=== PATIENT | female | born 1940 | race Caucasian/White ===

== ENCOUNTER 2018-05-25 04:06 | Inpatient (IN) ==
[2018-05-25] MEDS ORDERED: DUONEB (A & A) INH ONE (04:38)
[2018-05-25] MEDS ORDERED: SOLU-MEDROL IV ONE (04:38)
[2018-05-25 05:43] LABS: BASO# 0.02 X1000 (0.0-0.2); BASO% 0.1 % (0.0-0.8); EOS# 0.15 X1000 (0.0-0.7); EOS% 1.1 % (0.0-10.0); HEMATOCRIT 42.9 % (37.0-47.0); HEMOGLOBIN 12.3 g/dL (12.0-16.0); IMM GRAN# 0.09 X1000 (0.0-0.04); IMM GRAN% 0.6 % (0.0-0.5); LYMPH# 2.79 X1000 (1.2-3.4); LYMPH% 19.8 % (20.5-51.1); MCH 24.9 PG (27-31); MCHC 28.7 g/dL (33-37); MONO# 1.15 X1000 (0.11-0.59); MONO% 8.2 % (1.7-9.3); MPV 9.6 FL (7.4-10.4); NEUT# 9.89 X1000 (1.4-6.5); NEUT% 70.2 % (42.2-75.2); PLT 434 X1000 (130-400); RBC 4.93 XMIL (4.2-5.4); RDW 14.5 % (11.5-14.5); WBC 14.09 X1000 (4.8-10.8)
[2018-05-25 06:00] LABS: ALB/GLOB RATIO 1.6; ALBUMIN 4.2 g/dL (3.5-5.0); CALCIUM 8.8 mg/dL (8.8-10.2); POTASSIUM 5.2 mmol/L (3.5-5.1); TOTAL BILIRUBIN 0.15 mg/dL (0.20-1.00); TOTAL PROTEIN 6.9 g/dL (6.3-8.3)
[2018-05-25] MEDS ORDERED: MORPHINE IV ONE (06:13)
--- NOTE | 2018-05-25 06:31 | Diag Imaging Result Doc PS360 ---
CHEST-1 VIEW - 05/25/2018 INDICATION: sob COMPARISON: 05/10/2018 FINDINGS: Stable hyperexpanded lungs compatible with COPD. No focal infiltrates, pneumothorax, or pleural effusion. Heart size is normal. IMPRESSION: COPD. Electronically signed by Michael Jean 05/25/2018 6:29 AM
--- NOTE | 2018-05-25 06:51 | PROVIDER DOCUMENTATION ---
HPI-General Adult - General Chief Complaint: Shortness of Breath Stated Complaint: SOB Time Seen by Provider: 05/25/18 04:33 Source: patient Allergies/Adverse Reactions: Patient Allergies Allergy/AdvReac Type Severity Reaction Status Date / Time codeine [Codeine] Allergy Mild NAUSEA/VOMI Verified 04/17/17 14:36 TING Home Medications: Home Medication List Medication Instructions Recorded Confirmed Last Taken Type Arformoterol Neb [Brovana Neb] 15 microgm INH RTQ12H neb 12/23/16 04/22/17 04/16/17 Rx Levothyroxine [Synthroid] 100 microgm PO DAILY@0700 tablet 12/23/16 05/25/18 05/24/18 Rx Paroxetine [Paxil] 30 mg PO DAILY tablet 12/23/16 05/25/18 05/24/18 Rx Sitagliptin [Januvia] 100 mg PO DAILY tablet 12/23/16 05/25/18 05/24/18 Rx Baclofen 5 mg PO Q8H PRN PRN #10 tab 04/17/17 04/22/17 Unknown Rx Clonazepam [Klonopin] 0.5 mg PO TID PRN PRN 04/17/17 05/25/18 05/24/18 History Metformin [Glucophage] 500 mg PO BID 04/17/17 04/22/17 04/16/17 History Tramadol HCl [Ultram] 50 mg PO Q8H PRN PRN #14 tab 04/17/17 04/22/17 Unknown Rx Levofloxacin [Levaquin] 500 mg PO DAILY 04/22/17 04/22/17 Unknown History Prednisone 5 mg PO DAILY 04/22/17 05/25/18 05/24/18 History Albuterol 2.5MG/Ipratrop 0.5MG 3 ml INH RTQ6H neb 04/27/17 05/25/18 05/24/18 Rx [Duoneb (A & A)] Arformoterol Neb [Brovana Neb] 15 microgm INH RTQ12H neb 04/27/17 Unknown Rx Baclofen [Lioresal] 5 mg PO Q8H PRN PRN tablet 04/27/17 Unknown Rx Clonazepam [Klonopin] 0.5 mg PO TID PRN PRN tablet 04/27/17 Unknown Rx Eucalyptus Oil/Menthol Lozenge 1 each MT PRN PRN bag 04/27/17 Unknown Rx [Mcmullen's Cough Lozenge] Levothyroxine [Synthroid] 100 microgm PO DAILY@0700 tablet 04/27/17 Unknown Rx Metformin [Glucophage] 500 mg PO BID tablet 04/27/17 05/25/18 05/24/18 Rx Paroxetine [Paxil] 30 mg PO DAILY tablet 04/27/17 Unknown Rx Phenol 1.4% [place] [Chloraseptic 1 ml MT PRN PRN bottle 04/27/17 Unknown Rx [place]] Saline Nasal [place] [[place] Nasal 1 ml LEI PRN PRN bottle 04/27/17 Unknown Rx [place]] Sitagliptin [Januvia] 100 mg PO DAILY tablet 04/27/17 Unknown Rx Tramadol [Ultram] 50 mg PO Q8H PRN PRN tablet 04/27/17 05/25/18 05/24/18 Rx Tramadol [Ultram] 50 mg PO Q8HR #20 tab 05/10/18 Unknown Rx - History of Present Illness -Gen Adult Nature of Presenting Problems: Pt presents with COPD exacerbation, pt reports sob x several days, getting progressively worse, associated with productive cough, pt is on home O2 and has increased her O2, pt denies f/c, diane, cp, ap, n/v/d. Pt is lying in bed in no acute distress. Location of Pain/Injury: reports: none Pain Radiation: reports: no radiation Quality of Pain: reports: none Severity: reports: moderate Onset/Duration: reports: 4 days ago Timing: reports: still present Context/Activities at Onset: reports: none Modifying Factors: improves with: nothing Associated Symptoms: reports: shortness of breath Similar Symptoms Previously?: Yes Recently seen or treated by another doctor?: No Review of Systems - Adult - REVIEW OF SYSTEMS - ADULT Constitutional: reports: no symptoms reported Eyes: reports: no symptoms reported Ears, Nose, Mouth & Throat: reports: no symptoms reported Cardiovascular: reports: no symptoms reported Respiratory: reports: see HPI Gastrointestinal: reports: no symptoms reported Genitourinary: reports: no symptoms reported Musculoskeletal: reports: no symptoms reported Integumentary: reports: no symptoms reported Neurological: reports: no symptoms reported Psychiatric: reports: no symptoms reported Endocrine: reports: no symptoms reported Hematologic/Lymphatic: reports: no symptoms reported Allergic/Immunologic: reports: no symptoms reported All Other Systems: Reviewed and Negative Past History - Adult - PAST MEDICAL HISTORY-ADULT Review of Records: reports: Old Records Reviewed, Nursing Assessment Review, Medications Reviewed, Social history reviewed & non-contributory. Cardiovascular: reports: HTN Respiratory: reports: asthma, COPD Endocrine/Immune: reports: Diabetes - PRIOR SURGERIES/PROCEDURES Surgical/Procedure History: reports: cholecystectomy, hysterectomy - PRIOR HOSPITALIZATIONS Prior Hospitalizations: reports: for similar symptoms - IMMUNIZATION STATUS Childhood Immunizations: See Nurse Assessment Flu Vaccine: See Nurse Assessment - FAMILY HISTORY Family History: cancer, HTN Physical Exam-General - PHYSICAL EXAM-ADULT Initial Vital Signs Reviewed: Yes - CONSTITUTIONAL General Appearance: appears well - EYES Eyes: PERRL/EOMI - HEAD, EARS, NOSE, MOUTH & THROAT HENMT: normocephalic/atraumatic - NECK Neck: full range of motion, normal inspection - RESPIRATORY Respiratory: no respiratory distress, no accessory muscle use, wheezing - CARDIOVASCULAR Cardiovascular: regular rate, rhythm - GASTROINTESTINAL (ABDOMEN) Abdominal Exam: normal bowel sounds - LYMPHATIC Lymphatic: no adenopathy - MUSCULOSKELETAL Back Exam: normal inspection Extremity: normal range of motion - SKIN Integumentary: normal color - NEUROLOGIC Neurologic: shop manager II-XII nml as tested - PSYCHIATRIC Psych/Mental Status: normal mood/affect Progress - PLAN OF CARE/RESULTS Progress/Plan/Lab Results: Vital Signs - 8 hr 05/25/18 04:24 05/25/18 04:40 Temperature 97.9 F Pulse Rate 129 H 85 Respiratory Rate 22 16 Blood Pressure 162/96 O2 Sat by Pulse Oximetry 100 97 Laboratory Results - last 24 hr 05/25/18 05/25/18 05/25/18 05:10 05:12 05:12 WBC 14.09 H RBC 4.93 Hgb 12.3 Hct 42.9 MCV 87.0 MCH 24.9 L MCHC 28.7 L RDW Std Deviation 14.5 Plt Count 434 H MPV 9.6 Immature Gran % (Auto) 0.6 H Neut % (Auto) 70.2 Lymph % (Auto) 19.8 L [place] % (Auto) 8.2 Eos % (Auto) 1.1 Baso % (Auto) 0.1 Immature Gran # (Auto) 0.09 H Neut # (Auto) 9.89 H Lymph # (Auto) 2.79 [place] # (Auto) 1.15 H Eos # (Auto) 0.15 Baso # (Auto) 0.02 Sodium 140 Potassium 5.2 H Chloride 93 L Carbon Dioxide 36 H Anion Gap 11 BUN 16 Creatinine 1.0 H Estimated GFR/1.73 m2 54 BUN/Creatinine Ratio 16 Glucose 186 H Calculated Osmolality 285 Calcium 8.8 Total Bilirubin 0.15 L AST 15 ALT 11 Alkaline Phosphatase 271 H Troponin T Vww-[id number]-Bcdgnaitqyv Pept 85 Total Protein 6.9 Albumin 4.2 Globulin 2.7 Albumin/Globulin Ratio 1.6 05/25/18 05:12 WBC RBC Hgb Hct MCV MCH MCHC RDW Std Deviation Plt Count MPV Immature Gran % (Auto) Neut % (Auto) Lymph % (Auto) [place] % (Auto) Eos % (Auto) Baso % (Auto) Immature Gran # (Auto) Neut # (Auto) Lymph # (Auto) [place] # (Auto) Eos # (Auto) Baso # (Auto) Sodium Potassium Chloride Carbon Dioxide Anion Gap BUN Creatinine Estimated GFR/1.73 m2 BUN/Creatinine Ratio Glucose Calculated Osmolality Calcium Total Bilirubin AST ALT Alkaline Phosphatase Troponin T < 0.010 Lgi-X-Qacrkyawnpt Pept Total Protein Albumin Globulin Albumin/Globulin Ratio Orders Category Date Time Status cxr [CHEST-1 VIEW] [RAD] Stat Exams 05/25/18 04:37 Completed CBC WITH ELECTRONIC DIFF [HEME] Stat Lab 05/25/18 05:10 Completed COMPREHENSIVE METABOLIC PANEL [CHEM] Stat Lab 05/25/18 05:12 Completed PRO B-NATRIURETIC PEPTIDE Stat Lab 05/25/18 05:12 Completed TROPONIN T Stat Lab 05/25/18 05:12 Completed Albuterol 2.5MG/Ipratrop 0.5MG [Duoneb (A & A)] Med 05/25/18 04:38 Discontinued 3 ml INH NOW ONE Methylprednisolone Sod Succ [Solu-Medrol] Med 05/25/18 04:38 Discontinued 125 mg IV NOW ONE Morphine Med 05/25/18 06:13 Discontinued 4 mg IV NOW ONE Aerosol Treatments Routine Oth 05/25/18 04:38 Completed Aerosol Treatments Stat Oth 05/25/18 04:38 Completed EKG [EKG] Stat Ther 05/25/18 04:15 Ordered Result Diagrams: 05/25/18 05:10 05/25/18 05:12 - REASSESSMENT Reassessment #1 Time Reassessed: 07:28 Status: improving (Seen and examined by me. Case discussed with Dr. Duran at shift change. She is still tachycardic, lung sounds tight. States is afraid to go home. Will culture and lactate, give IV levaquine and call Dr. Guzman for pos sible admission. Patient meets criteria for sepsis based on leukocytosis and tachycardia.) - CONSULTS/PCP/HOSPITALIST Notification #1 *Consult/PCP/Hospitalist*: Megan Time Discussed: 08:00 (Agrees to admit, wants Levaquin) Consult Disposition: Admit - CHANGE OF SHIFT REPORT (ED Provider) 1 Report Given and Care Transferred to:: Dr. Damian Time of Transfer: 07:00 Items Pending: Other (Reassess sob and tachycardia) Departure - Departure Date of Disposition Decision: 05/25/18 Time of Disposition Decision: 08:00 DIAGNOSIS: COPD exacerbation Sepsis Qualifiers: Sepsis type: sepsis due to unspecified organism Qualified Code(s): A41.9 - Sepsis, unspecified organism Disposition: ADMITTED INPATIENT 09 Certified Medical Emergency: Emergent Condition: Fair Referrals and Follow-Ups: Josh Guzman MD [Primary Care Provider] - - Critical Care Note This patient required my direct & personal management of CC.: Yes Total Time (mins): 35 Critical Care Statement: This patient required my direct personal management to treat or rule out processes, the absence of which, could potentiallly result in sudden, clinically significant life or limb threatening deterioration. Attestation - Physician/ KAYLIE Attestation Patient care was provided by Advanced Practice Provider:: No The physician spent face to face time with patient:: Yes Advanced Practice Provider documentation review:: Supervising physician onsite and consulted in the evaluation and care of this patient. The physician did have a face to face encounter with the patient.
[2018-05-25] MEDS ORDERED: NS 500 ML IV ONE (06:52)
[2018-05-25] MEDS ORDERED: KEFLEX PO ONE (06:52)
[2018-05-25] MEDS ORDERED: LEVAQUIN 750 MG/D5W 750 MG/150 ML IVPB IV ONE (06:58)
--- NOTE | 2018-05-25 07:28 | EKG Report ---
Test Performed on : 05/25/2018 04:19:29 AM Test Reason : SOB Blood Pressure : / mmHG Vent. Rate : 128 BPM Atrial Rate : 128 BPM P-R Int : 132 ms QRS Dur : 074 ms QT Int : 302 ms P-R-T Axes : 082 073 075 degrees QTc Int : 440 ms Sinus tachycardia. Right atrial enlargement Borderline ECG When compared with ECG of 10-MAY-2018 10:11, (Unconfirmed) premature atrial complexes. are no longer present Unconfirmed Result
[2018-05-25] MEDS ORDERED: NS 1,000 ML IV ONE ×2 (07:30→08:02)
[2018-05-25] MEDS ORDERED: D50W SYRINGE IV ONE (08:05)
[2018-05-25 08:34] LABS: ALLEN TEST YES; BE 9.5 mmoll (-3.0-3.0); BLOOD TYPE ARTERIAL; HCO3-(ACT) 32.4 mmoll (20.0-26.0); METHB 0.1 % (0.0-1.5); O2(CT) 15.5 mL/dL (15.0-23.0); O2HB 97.5 % (95.0-99.0); PO2(98.6) 96 mmHg (60-100); SAMPLE BLOOD; SAO2 99.7 % (95.0-100.0); THB 11.2 g/dL (11.5-17.4)
[2018-05-25 08:35] LABS: MODALITY CANNULA
[2018-05-25 08:38] LABS: PCO2(98.6) 78 mmHg (35-45)
[2018-05-25] MEDS ORDERED: KLONOPIN PO PRN ×2 (09:13)
[2018-05-25] MEDS ORDERED: HALL'S COUGH LOZENGE MT PRN (09:13)
[2018-05-25] MEDS ORDERED: CHLORASEPTIC SPRAY MT PRN (09:13)
[2018-05-25] MEDS ORDERED: LIORESAL PO PRN ×2 (09:13)
[2018-05-25] MEDS ORDERED: ULTRAM PO PRN ×2 (09:13)
[2018-05-25] MEDS ORDERED: AYR NASAL SPRAY NAS PRN (09:13)
[2018-05-25] MEDS ORDERED: LEVAQUIN 750 MG/D5W 750 MG/150 ML IVPB IV SCH (09:15)
--- NOTE | 2018-05-25 09:33 | PROGRESS NOTE ---
DATE: 05/25/2018 SUBJECTIVE: Ms. Rojas is doing somewhat better. She was given respiratory therapy as well as IV steroids, IV Levaquin in the emergency room. PLAN: She is being admitted with acute bronchitis and acute respiratory failure. cc: Josh Guzman MD
--- NOTE | 2018-05-25 09:33 | HISTORY AND PHYSICAL ---
HISTORY OF PRESENT ILLNESS: Ms. Rojas is a 78-year-old, white female with a known case of COPD, maturity-onset diabetes, severe anxiety, chronic urticaria. Came to the emergency room because of severe shortness of breath. She has been having persistent cough and expectoration. She has been sick for the last 3 weeks. She once came to the emergency room. However, she was sent home. She gets recurrent infections with bronchitis and pneumonia. PAST SURGICAL HISTORY: Reveals history of hysterectomy as well as cholecystectomy. PAST MEDICAL HISTORY: She has a history of mild hypertension. REVIEW OF SYSTEMS: Other than increasing shortness of breath and cough with expectoration, it is noncontributory. MEDICATIONS: Include intermittent prednisone therapy, inhalers. We have not got her medication list yet. She is on oral antidiabetic agents. PHYSICAL EXAMINATION: VITAL SIGNS: Reveal temperature normal, pulse 122 per minute, respiratory rate 21 per minute, blood pressure 162/96. HEENT: Head: Normocephalic. Pupils: PERRLA. Fundus examination not done. Neck: Supple. JVP normal. ENT examination reveals some pharyngeal congestion. There is no evidence of lymphadenopathy, thyroid enlargement, cyanosis, or clubbing. There is minimal anemia with pallor and bilateral pedal edema. Pedal pulses well felt. BREASTS: Examination not done. CHEST: Normal inspection. LUNGS: Reveal bilateral expiratory wheezing with some basal rales. PMI in the normal position. HEART: Heart sounds normal. No murmur, gallop, or rub noted. ABDOMEN: Nondistended. Hernial orifices normal. No guarding, rigidity, free fluid, masses, or organomegaly. Bowel sounds normal. RECTAL: Examination deferred. MERCHANDISE PLANNING MANAGER: Higher functions normal. Cranial nerves normal. Motor and system examination unremarkable. Deep tendon reflexes normal. Plantars downgoing. Skull and spine examination normal for age. No cerebellar signs or signs of meningeal irritation. Locomotor examination unremarkable. SKIN: Examination unremarkable. LAB DATA: Reveals white count of 14.09, hemoglobin 12.3. Blood gases reveal pCO2 of 78, pH 7.3, PO2 of 96. Electrolytes are stable. Potassium 5.2. PLAN: We will continue the current plan of management. IMPRESSION: 1. Acute bronchitis. 2. Acute respiratory failure. 3. Chronic obstructive pulmonary disease. 4. Maturity onset diabetes. 5. Hypertension. 6. Severe anxiety. 7. Chronic urticaria. cc: Josh Guzman MD
[2018-05-25] MEDS ORDERED: DUONEB (A & A) INH SCH (10:00)
[2018-05-25] MEDS: DUONEB (A & A) INH SCH ×4 (11:29→22:55)
[2018-05-25] MEDS: HUMALOG SUBQ SCH ×3 (12:27→22:27)
[2018-05-25] MEDS ORDERED: ULTRAM PO SCH (13:00)
[2018-05-25 14:28] LABS: URINE SOURCE CLEAN CATCH
[2018-05-25 14:32] LABS: BILIRUBIN URINE NEGATIVE (NEGATIVE); BLOOD URINE NEGATIVE (NEGATIVE); COLOR YELLOW; GLUCOSE URINE >1000 mg/dL (NEGATIVE); KETONE URINE NEGATIVE (NEGATIVE); LEUKOCYTES URINE NEGATIVE (NEGATIVE); NITRITE URINE NEGATIVE (NEGATIVE); PH URINE 6.5; PROTEIN URINE NEGATIVE (NEGATIVE); SP GRAVITY URINE 1.008; TURBIDITY URINE CLEAR (CLEAR); UROBILINOGEN URINE NORMAL (NORMAL)
[2018-05-25 14:34] LABS: UR EPITHELIAL CELLS <10 /HPF (<10); URINE BACTERIA NEGATIVE /HPF; URINE RBC <10 /HPF (<10); URINE WBC <10 /HPF (<10)
[2018-05-25] MEDS: KLONOPIN PO PRN ×2 (14:43→19:44)
[2018-05-25] MEDS: SOLU-MEDROL IV SCH ×2 (14:43→19:42)
[2018-05-25] MEDS: GLUCOPHAGE PO SCH (16:45)
[2018-05-25] MEDS: BROVANA NEB INH SCH (19:21)
[2018-05-25] MEDS ORDERED: BROVANA NEB INH SCH ×2 (19:30)
[2018-05-25] MEDS: ZANAFLEX PO SCH ×2 (19:43→23:24)
[2018-05-25] MEDS ORDERED: GLUCOPHAGE PO SCH ×2 (21:00)
[2018-05-25] MEDS: TYLENOL PO PRN (23:35)
[2018-05-26] MEDS: SOLU-MEDROL IV SCH ×4 (02:22→20:26)
[2018-05-26] MEDS: DUONEB (A & A) INH SCH ×6 (03:43→23:10)
[2018-05-26] MEDS: KLONOPIN PO PRN ×3 (04:07→23:40)
[2018-05-26] MEDS: SYNTHROID PO SCH (06:50)
[2018-05-26] MEDS: HUMALOG SUBQ SCH ×4 (06:50→21:58)
[2018-05-26] MEDS ORDERED: SYNTHROID PO SCH ×2 (07:00)
[2018-05-26] MEDS ORDERED: BROVANA NEB ONE ×2 (07:10)
[2018-05-26] MEDS: BROVANA NEB INH SCH ×2 (07:56→19:30)
[2018-05-26] MEDS: JANUVIA PO SCH (08:05)
[2018-05-26] MEDS: GLUCOPHAGE PO SCH ×2 (08:07→17:30)
[2018-05-26] MEDS: ZANAFLEX PO SCH ×2 (08:07→20:26)
[2018-05-26] MEDS: PAXIL PO SCH (08:32)
[2018-05-26] MEDS ORDERED: PAXIL PO SCH ×2 (09:00)
[2018-05-26] MEDS ORDERED: JANUVIA PO SCH ×2 (09:00)
--- NOTE | 2018-05-26 09:14 | PROGRESS NOTE ---
DATE: 05/26/2018 Ms. Rojas is feeling somewhat better. She had marked increase in the pCO2. We are going to repeat the blood gases. At present, her vital signs are stable. She feels better and I am going to reduce the Solu-Medrol on her. Chest auscultation reveals less amount of wheezing. Chest x-ray was negative for pneumonia. We will continue the current management. cc: Josh Guzman MD
[2018-05-26 10:14] LABS: ALLEN TEST YES; BE 5.6 mmoll (-3.0-3.0); BLOOD TYPE ARTERIAL; HCO3-(ACT) 29.3 mmoll (20.0-26.0); METHB 0.7 % (0.0-1.5); O2(CT) 13.3 mL/dL (15.0-23.0); O2HB 97.3 % (95.0-99.0); PO2(98.6) 110 mmHg (60-100); SAMPLE BLOOD; SAO2 99.2 % (95.0-100.0); THB 9.6 g/dL (11.5-17.4); pH(98.6) 7.31 (7.35-7.45)
[2018-05-26 10:18] LABS: MODALITY CANNULA; PCO2(98.6) 66 mmHg (35-45)
[2018-05-26] MEDS: TYLENOL PO PRN ×2 (14:28→20:27)
[2018-05-26] MEDS: SYSTANE EYE DROPS BOTH EYES PRN (15:30)
[2018-05-26] MEDS: ZOFRAN IV PRN (21:22)
[2018-05-27] MEDS: SOLU-MEDROL IV SCH ×4 (02:27→17:45)
[2018-05-27] MEDS: DUONEB (A & A) INH SCH ×6 (03:25→22:55)
[2018-05-27] MEDS: HUMALOG SUBQ SCH ×4 (06:17→21:17)
[2018-05-27] MEDS: SYNTHROID PO SCH (06:19)
[2018-05-27] MEDS ORDERED: BROVANA NEB ONE ×2 (07:13)
[2018-05-27] MEDS: BROVANA NEB INH SCH ×2 (07:21→19:26)
[2018-05-27] MEDS: JANUVIA PO SCH (09:12)
[2018-05-27] MEDS: ZANAFLEX PO SCH ×2 (09:12→21:10)
[2018-05-27] MEDS: GLUCOPHAGE PO SCH ×2 (09:12→17:01)
[2018-05-27] MEDS: PAXIL PO SCH (09:13)
[2018-05-27] MEDS: LEVAQUIN 750 MG/D5W 750 MG/150 ML IVPB IV SCH (10:03)
--- NOTE | 2018-05-27 11:44 | PROGRESS NOTE ---
DATE: 05/27/2018 Ms. Rojas is having a sore throat. She has difficulty in swallowing. She has a persistent dry cough. We will take care with cough medicine and Nystatin swish and swallow. -9 cc: Josh Guzman MD
[2018-05-27] MEDS: TESSALON PO PRN ×2 (12:08→21:10)
[2018-05-27] MEDS: MYCOSTATIN SUSP PO SCH ×3 (13:44→21:09)
[2018-05-27] MEDS: KLONOPIN PO PRN (18:56)
[2018-05-28] MEDS: KLONOPIN PO PRN ×3 (02:37→21:37)
[2018-05-28] MEDS: TYLENOL PO PRN ×2 (02:38→18:04)
[2018-05-28] MEDS: SOLU-MEDROL IV SCH ×2 (02:39→10:01)
[2018-05-28] MEDS: DUONEB (A & A) INH SCH ×8 (03:25→23:43)
[2018-05-28] MEDS: HUMALOG SUBQ SCH ×4 (06:33→21:45)
[2018-05-28] MEDS: SYNTHROID PO SCH (06:34)
--- NOTE | 2018-05-28 06:44 | EKG Report ---
Test Performed on : 05/27/2018 9:54:51 PM Test Reason : vtach tele Blood Pressure : / mmHG Vent. Rate : 108 BPM Atrial Rate : 108 BPM P-R Int : 132 ms QRS Dur : 078 ms QT Int : 330 ms P-R-T Axes : 082 077 079 degrees QTc Int : 442 ms Sinus tachycardia. Biatrial enlargement Abnormal ECG When compared with ECG of 25-MAY-2018 04:19, (Unconfirmed) No significant change was found Unconfirmed Result
[2018-05-28] MEDS: MYCOSTATIN SUSP PO SCH ×4 (08:20→21:45)
[2018-05-28] MEDS: PAXIL PO SCH (08:21)
[2018-05-28] MEDS: GLUCOPHAGE PO SCH ×2 (08:21→17:14)
[2018-05-28] MEDS: JANUVIA PO SCH (08:21)
[2018-05-28] MEDS: ZANAFLEX PO SCH ×2 (08:21→21:37)
[2018-05-28] MEDS: BROVANA NEB INH SCH (08:45)
[2018-05-28] MEDS ORDERED: BROVANA NEB ONE (09:36)
[2018-05-28] MEDS: LEVAQUIN 750 MG/D5W 750 MG/150 ML IVPB IV SCH (10:04)
--- NOTE | 2018-05-28 12:24 | PROGRESS NOTE ---
DATE: 05/28/2018 SUBJECTIVE: The patient is feeling somewhat better. She still has persistent cough. Throat is slightly better. She is on nystatin swish and swallow, IV Levaquin as well as tapering doses of IV Solu-Medrol and respiratory therapy. Overall condition is slowly improving. -7 cc: Josh Guzman MD
[2018-05-28] MEDS: TESSALON PO PRN (13:39)
[2018-05-28] MEDS: ZOFRAN IV PRN (21:36)
[2018-05-28] MEDS ORDERED: SOLU-MEDROL IV SCH (22:00)
[2018-05-28] MEDS: VENTOLIN HFA INH PRN (22:13)
[2018-05-29] MEDS: HUMALOG SUBQ SCH ×4 (06:19→21:41)
[2018-05-29] MEDS: SYNTHROID PO SCH (06:20)
[2018-05-29] MEDS: DUONEB (A & A) INH SCH ×6 (07:35→23:00)
[2018-05-29] MEDS: BROVANA NEB INH SCH ×2 (07:35→19:10)
[2018-05-29] MEDS: LEVAQUIN 750 MG/D5W 750 MG/150 ML IVPB IV SCH (10:15)
[2018-05-29] MEDS: MYCOSTATIN SUSP PO SCH ×4 (10:39→21:41)
[2018-05-29] MEDS: PAXIL PO SCH (10:39)
[2018-05-29] MEDS: ZANAFLEX PO SCH ×2 (10:39→21:40)
[2018-05-29] MEDS: GLUCOPHAGE PO SCH ×2 (10:40→16:29)
[2018-05-29] MEDS: JANUVIA PO SCH (10:40)
[2018-05-29] MEDS: SOLU-MEDROL IV SCH ×2 (10:40→21:40)
[2018-05-29] MEDS: VENTOLIN HFA INH PRN (11:26)
[2018-05-29] MEDS: KLONOPIN PO PRN ×2 (12:11→21:41)
[2018-05-29] MEDS: TESSALON PO PRN ×2 (12:11→21:41)
--- NOTE | 2018-05-29 12:41 | PROGRESS NOTE ---
DATE: 05/29/2018 Ms. Rojas is gradually getting better. Her breathing is improving. Appetite is still poor. We will put her on Glucerna twice a day. Overall condition is otherwise unchanged. -1 cc: Josh Guzman MD
[2018-05-29] MEDS: SYSTANE EYE DROPS BOTH EYES PRN (15:25)
[2018-05-29] MEDS: TYLENOL PO PRN (16:29)
[2018-05-30] MEDS: DUONEB (A & A) INH SCH ×6 (03:13→23:06)
[2018-05-30] MEDS: KLONOPIN PO PRN ×3 (05:26→20:38)
[2018-05-30] MEDS: TESSALON PO PRN ×3 (05:26→20:39)
[2018-05-30] MEDS: SYNTHROID PO SCH ×2 (05:26→10:01)
[2018-05-30] MEDS: HUMALOG SUBQ SCH ×4 (06:42→21:37)
[2018-05-30] MEDS: LEVAQUIN 750 MG/D5W 750 MG/150 ML IVPB IV SCH (09:52)
[2018-05-30] MEDS: MYCOSTATIN SUSP PO SCH ×4 (09:52→20:39)
[2018-05-30] MEDS: SOLU-MEDROL IV SCH (09:53)
[2018-05-30] MEDS: JANUVIA PO SCH (09:54)
[2018-05-30] MEDS: ZANAFLEX PO SCH ×2 (09:54→20:39)
[2018-05-30] MEDS: GLUCOPHAGE PO SCH ×2 (09:54→17:01)
[2018-05-30] MEDS: PAXIL PO SCH (09:54)
--- NOTE | 2018-05-30 13:45 | DISCHARGE SUMMARY ---
ADMISSION DATE: 05/25/2018 DISCHARGE DATE: 05/30/2018 HISTORY: Ms. Rojas is a known case of COPD was admitted with acute exacerbation. LABORATORY AND DIAGNOSTICS: Chest x-ray showed presence of COPD. Otherwise, it was unremarkable. EKG showed the presence of sinus tachycardia possible old anteroseptal wall myocardial infarction. There are no acute changes noted. The lab data revealed CBC showed white count of 14.09. Blood gases revealed initial pCO2 was 78 repeat pCO2 came down to 66. Electrolytes were normal. Blood sugar was checked around the clock. Urinalysis was unremarkable. COURSE IN THE HOSPITAL: She was treated with respiratory therapy, IV steroids as well as IV antibiotics. Oral nystatin swish and swallow was given for fungal stomatitis. She continued to improve and so we decided to send her home. We tapered the steroids and put her on prednisone 10 mg daily. She will be discharged today. I gave her prescriptions of Levaquin, Tessalon Perles as well as nystatin swish and swallow. cc: Josh Guzman MD
[2018-05-30] MEDS: BROVANA NEB INH SCH ×2 (15:46→19:00)
[2018-05-30] MEDS: VENTOLIN HFA INH PRN (16:07)
[2018-05-30 17:27] LABS: CALCIUM 8.9 mg/dL (8.8-10.2); POTASSIUM 5.1 mmol/L (3.5-5.1)
[2018-05-30] MEDS: PREDNISONE PO SCH (20:38)
[2018-05-30] MEDS: ZOFRAN IV PRN (20:44)
[2018-05-31] MEDS: DUONEB (A & A) INH SCH ×6 (03:29→23:30)
[2018-05-31] MEDS: BROVANA NEB INH SCH ×3 (06:21→19:40)
[2018-05-31] MEDS: SYNTHROID PO SCH (06:39)
[2018-05-31] MEDS: HUMALOG SUBQ SCH ×4 (06:39→20:11)
[2018-05-31] MEDS: KLONOPIN PO PRN ×2 (06:39→17:46)
[2018-05-31] MEDS: TESSALON PO PRN ×2 (06:39→20:21)
--- NOTE | 2018-05-31 06:49 | EKG Report ---
Test Performed on : 05/30/2018 4:20:27 PM Test Reason : 15 Beat run of Vtach then 3 beat run of Vtach Blood Pressure : / mmHG Vent. Rate : 114 BPM Atrial Rate : 114 BPM P-R Int : 126 ms QRS Dur : 080 ms QT Int : 322 ms P-R-T Axes : 080 075 079 degrees QTc Int : 443 ms Sinus tachycardia. Right atrial enlargement Borderline ECG When compared with ECG of 27-MAY-2018 21:54, No significant change was found Unconfirmed Result
[2018-05-31] MEDS ORDERED: BROVANA NEB ONE (07:18)
[2018-05-31] MEDS: GLUCOPHAGE PO SCH ×2 (08:14→17:46)
[2018-05-31] MEDS: MYCOSTATIN SUSP PO SCH ×4 (08:14→20:00)
[2018-05-31] MEDS: ZANAFLEX PO SCH ×2 (08:14→20:00)
[2018-05-31] MEDS: PAXIL PO SCH (08:15)
[2018-05-31] MEDS: JANUVIA PO SCH (08:15)
[2018-05-31] MEDS: LEVAQUIN 750 MG/D5W 750 MG/150 ML IVPB IV SCH (08:15)
--- NOTE | 2018-05-31 08:49 | PROGRESS NOTE ---
DATE: 05/31/2018 Ms. Rojas was actually discharged yesterday and before she could go home, she had the telemetry on and we found that she had a run of 10 to 15 beats of ventricular tachycardia, a short run of ventricular tachycardia. She had blood work done which was supposed to have included cardiac enzymes and they were not done. I am going to order cardiac enzymes. Her EKG was unremarkable. Electrolytes were normal. I am also going to ask for a cardiology consult. cc: Josh Guzman MD
--- NOTE | 2018-05-31 09:45 | EKG Report ---
Test Performed on : 05/31/2018 09:39:24 AM Test Reason : nsvt Blood Pressure : / mmHG Vent. Rate : 109 BPM Atrial Rate : 109 BPM P-R Int : 126 ms QRS Dur : 078 ms QT Int : 324 ms P-R-T Axes : 085 078 082 degrees QTc Int : 436 ms Sinus tachycardia. Right atrial enlargement Borderline ECG When compared with ECG of 30-MAY-2018 16:20, (Unconfirmed) No significant change was found Unconfirmed Result
[2018-05-31] MEDS: CARDIZEM PO SCH ×3 (10:01→20:00)
[2018-05-31 10:12] LABS: CALCIUM 9.1 mg/dL (8.8-10.2); POTASSIUM 4.2 mmol/L (3.5-5.1)
[2018-05-31] MEDS ORDERED: MAGNESIUM SULFATE 2 GM/S.W.I. 2 GM/50 ML IVPB IV ONE (10:37)
[2018-05-31 11:01] LABS: C REACTIVE PROT QUANT 1.64 mg/L (0.00-5.00); CHOLESTEROL 170 mg/dL (0-200); HDL 86 mg/dL (45-65); LDL 66 mg/dL; TRIGLYCERIDES 92 mg/dL (35-135); VLDL 18 mg/dL
--- NOTE | 2018-05-31 11:42 | CARDIOLOGY CONSULTATION ---
DATE: 05/31/2018 CHIEF COMPLAINT: Shortness of breath, pain in between shoulder blades. REASON FOR THIS CONSULTATION: Ventricular tachycardia. HISTORY: Ms. Rojas is a 78-year-old, female who was seen in the emergency room department on May 10 for chest discomfort and dyspnea. At that time, they did a CT of the chest that was reported as showing patchy atherosclerotic calcification involving the descending thoracic aorta, a few calcified mediastinal and hilar lymph nodes, and there was advanced pulmonary emphysema and right middle lobe bronchiectasis.Coronary arteries were also calcified. The patient subsequently came in on the for full admission because of worsening dyspnea, cough, and the pain in between the shoulder blades. She has been treated with beta agonists, antibiotics, and her telemetry has shown the presence of runs of nonsustained ventricular tachycardia which are symptomatic. The patient does feel poorly when they happen. That is the reason for the consultation. PAST MEDICAL HISTORY: Positive for COPD. She has been on home oxygen. She has diabetes mellitus type 2. She had chronic urticaria and hypothyroidism. SURGICAL HISTORY: Cholecystectomy and hysterectomy. SOCIAL HISTORY: She is retired. . Lives at home. Has a granddaughter that is living with her. Not a smoker. FAMILY HISTORY: Mother had esophageal cancer. Father had heart disease, at the age of 65. HOME MEDICATIONS: At the time of this consult included albuterol, Brovana nebulizer, Tessalon Perles, clonazepam, Levaquin, Synthroid, metformin, paroxetine, prednisone, Januvia, Zanaflex, nystatin. ALLERGIES: Codeine. REVIEW OF SYSTEMS: Chronically short of breath. Lately has been experiencing pain in between shoulder blades. Activities are markedly limited because of dyspnea. Her weight is significantly decreased. Her body mass index is 17.3. She has no vascular issues that she is aware of. No abdominal complaints. No musculoskeletal issues. No hearing or visual problems. No neurological complaints. No psychiatric illness. PHYSICAL EXAMINATION: Vital Signs: Blood pressure 132/70, pulse 109, respirations 16, temperature 97.7 degrees. General: Patient is awake, elderly, in no distress. HEENT: Unremarkable. Chest: Diffusely diminished breath sounds. Hyperresonant to percussion. Heart: Heart sounds are distant, regular, without gallop or murmur. Abdomen: Nontender, soft. No masses. No hepatomegaly. Extremities: Showed decreased pulses. No peripheral edema. Neurological Examination: Nonfocal. Moving 4 extremities. BLOOD WORK: Sodium 139, potassium 4.2, magnesium 1.7, BUN 21, creatinine 1.0. Chest x-ray done during this admission shows COPD. EKGs done yesterday and today show sinus rhythm with prominent right atrial enlargement. IMPRESSION: 1. Patient having runs of nonsustained ventricular tachycardia. 2. Evidence of coronary atherosclerosis on CT of the chest. 3. Advanced chronic obstructive pulmonary disease and emphysema, on home oxygen. 4. History of hypothyroidism. 5. History of diabetes mellitus type 2. RECOMMENDATION: At this time, we will get an echocardiogram to evaluate her left ventricular systolic function. I will probably suggest to pursue a left heart catheterization for definitive diagnosis of severe coronary heart disease. We are going to do a stress test on this patient. Further advice will be forthcoming. cc: MD Josh Blackwell MD MTDD
[2018-05-31] MEDS: PREDNISONE PO SCH (20:00)
[2018-05-31] MEDS: KLONOPIN PO SCH (20:00)
--- NOTE | 2018-05-31 21:40 | ECHO REPORT ---
ORDER DATE: 05/31/2018 MEASUREMENTS: Left ventricular internal diameter diastole 3.4, septal thickness 1.2, left ventricular internal diameter in systole 2.3, aortic root 2.9, left atrium 3.5. SUMMARY: 1. Technically difficult study due to limited acoustic window quality. Intravenous echo contrast agent Optison was utilized to enhance endocardial definition. 2. Aortic valve is without evidence of structural abnormality and appears to open adequately on 2- dimensional images. Peak gradient across aortic valve is less than 10 mmHg. Mitral, tricuspid, and pulmonic valves less than 10 mmHg. There is trace aortic regurgitation. Mitral, tricuspid and pulmonic valves are without evidence of structural abnormality with very mild mitral regurgitation. Aortic root is normal in size. 3. Normal left ventricular dimensions demonstrated on 2-dimensional images. Estimated left ejection fraction appears to be at least 60%. No regional wall motion abnormalities evident. Doppler suggests grade 1 left ventricular diastolic dysfunction. Left atrium, right atrium, right ventricle normal size with grossly preserved right ventricular systolic function. 4. No pericardial effusion. 5. Appearance of inferior vena cava suggests normal central venous pressure. cc: MD Celestina Dodson PA Amit V. Vora, MD
[2018-06-01] MEDS: CARDIZEM PO SCH ×4 (02:48→20:14)
[2018-06-01] MEDS: DUONEB (A & A) INH SCH ×4 (03:41→15:09)
[2018-06-01] MEDS: HUMALOG SUBQ SCH ×4 (06:38→20:47)
[2018-06-01] MEDS: KLONOPIN PO SCH ×2 (08:48→20:14)
[2018-06-01] MEDS: PAXIL PO SCH (08:48)
[2018-06-01] MEDS: GLUCOPHAGE PO SCH ×2 (08:48→16:32)
[2018-06-01] MEDS: JANUVIA PO SCH (08:48)
[2018-06-01] MEDS: SYNTHROID PO SCH (08:49)
[2018-06-01] MEDS: MYCOSTATIN SUSP PO SCH ×4 (08:49→20:14)
[2018-06-01] MEDS: ZANAFLEX PO SCH ×2 (08:49→20:14)
[2018-06-01] MEDS: LEVAQUIN 750 MG/D5W 750 MG/150 ML IVPB IV SCH (08:50)
--- NOTE | 2018-06-01 09:06 | PROGRESS NOTE ---
DATE: 06/01/2018 SUBJECTIVE: Ms. Rojas was transferred yesterday to [facility] because of her heart rhythm. She has recurrent paroxysmal short-lasting ventricular tachycardia. She has some calcification in the coronary arteries on the CT scan. Echocardiogram is almost unremarkable. She is probably going to go through a stress test, and possibly catheterization studies if indicated. -1 cc: Josh Guzman MD
[2018-06-01] MEDS ORDERED: BROVANA NEB ONE (09:15)
[2018-06-01] MEDS: BROVANA NEB INH SCH ×2 (10:48→19:51)
[2018-06-01] MEDS: LOPRESSOR PO SCH (18:33)
--- NOTE | 2018-06-01 19:13 | CARDIOLOGY PROGRESS NOTE ---
DATE: 06/01/2018 CHIEF COMPLAINT: Dyspnea, irregular heartbeat, ventricular tachycardia. SUBJECTIVE: Ms. Rojas is still feeling some tightness in the chest. She is still tachycardic. She is not having any recurrent V-tach for the past 24 hours. We have initiated diltiazem. OBJECTIVE: Vital Signs: Blood pressure is 152/75, temperature 97.8, pulse 114, respirations 18. General: She is awake, alert, chronically ill, in no distress. HEENT: Unremarkable. Chest: Diminished breath sounds diffusely with some end expiratory wheezing. Heart sounds tachycardic, regular No gallop or murmur. Abdomen: Nontender. Extremities: Show good pulses. No peripheral edema. Neurologic: Follows commands. Moves all 4 extremities. BLOOD WORK: Today we do not have any blood work ordered. Her C-reactive protein yesterday was normal. Her sedimentation rate was normal. D-dimer was slightly elevated. Last chest x-ray from the day of admission, actually the , showed COPD. DIAGNOSTIC DATA: Echocardiogram from yesterday showed ejection fraction of 60%. No regional wall motion abnormality. IMPRESSION: 1. Patient with ventricular tachycardia, probably polymorphic. 2. Coronary atherosclerosis noted on CT scan of the chest. 3. Advanced chronic obstructive pulmonary disease. 4. History of hypothyroidism. 5. Bronchitis. 6. Diabetes mellitus type 2. RECOMMENDATIONS: At this time we will obtain a thyroid level. We will cut down on Levaoquin to a more appropriate dosage for her age and renal function. We will discuss with [facility] about possible transfer over to them for a catheterization. I explained the cardiac catheterization procedure to the patient, and she wanted to go to [place] to have it done. Further advice will be forthcoming. cc: MD Josh Blackwell MD [facility]
[2018-06-01] MEDS: PREDNISONE PO SCH (20:14)
[2018-06-02] MEDS: VENTOLIN HFA INH PRN (02:20)
[2018-06-02] MEDS: CARDIZEM PO SCH ×4 (02:46→20:05)
[2018-06-02] MEDS: LOPRESSOR PO SCH ×3 (02:46→17:57)
[2018-06-02] MEDS: HUMALOG SUBQ SCH ×5 (05:59→21:10)
[2018-06-02] MEDS: SYNTHROID PO SCH (06:00)
[2018-06-02 07:26] LABS: FREE T4 1.29 ng/dL (0.93-1.70); TSH 2.96 uIUmL (0.27-4.20)
[2018-06-02] MEDS: BROVANA NEB INH SCH ×2 (07:38→19:38)
[2018-06-02] MEDS ORDERED: BROVANA NEB ONE (07:39)
--- NOTE | 2018-06-02 07:59 | EKG Report ---
Test Performed on : 06/02/2018 06:41:38 AM Test Reason : ventricular tachycardia Blood Pressure : / mmHG Vent. Rate : 080 BPM Atrial Rate : 080 BPM P-R Int : 140 ms QRS Dur : 076 ms QT Int : 384 ms P-R-T Axes : 087 085 088 degrees QTc Int : 442 ms Normal sinus rhythm. with sinus arrhythmia. Right atrial enlargement Borderline ECG When compared with ECG of 31-MAY-2018 09:39, No significant change was found Unconfirmed Result
[2018-06-02] MEDS: JANUVIA PO SCH (08:33)
[2018-06-02] MEDS: LEVAQUIN 250 MG/D5W 250 MG/50 ML IVPB IV SCH (08:33)
[2018-06-02] MEDS: KLONOPIN PO SCH ×2 (08:33→21:10)
[2018-06-02] MEDS: GLUCOPHAGE PO SCH ×2 (08:33→16:41)
[2018-06-02] MEDS: ZANAFLEX PO SCH ×2 (08:34→21:10)
[2018-06-02] MEDS: PAXIL PO SCH (08:34)
[2018-06-02] MEDS: MYCOSTATIN SUSP PO SCH ×4 (08:34→21:10)
--- NOTE | 2018-06-02 08:49 | PROGRESS NOTE ---
DATE: 06/02/2018 SUBJECTIVE: Ms. Rojas has recurrent ventricular tachycardia and atherosclerosis noted in the coronary arteries. She has severe COPD, history of diabetes. She has been evaluated by Dr. Humphrey, who thinks she needs cardiac catheterization. The patient wants the catheterization done in [place] and he is making arrangements. As soon as arrangements are made, we will transfer her to [facility]. cc: Josh Guzman MD
--- NOTE | 2018-06-02 18:35 | CARDIOLOGY PROGRESS NOTE ---
DATE: 06/02/2018 CHIEF COMPLAINT: Irregular heartbeat, dyspnea. SUBJECTIVE: Ms. Rojas has not experienced any further arrhythmia. 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 We have put her on a combination of low-dose diltiazem and low- dose beta heather. She seems to be tolerating that well. OBJECTIVE: Vital Signs: Blood pressure is 103/51, temperature 97.7, pulse 72, respirations 15. General: She is awake, alert and oriented, in no distress. HEENT: Unremarkable. Chest: Sounds clearer than yesterday. No wheezes. Cardiovascular: Heart sounds are regular and rhythmic. No gallop or murmur. Abdomen: Nontender. Extremities: Show no edema. BLOOD WORK: TSH 54, normal. Magnesium is 1.9. LDL cholesterol was 66. HDL is 86, total cholesterol 170, triglycerides 92. IMPRESSION: 1. Patient who developed paroxysmal unsustained ventricular tachycardia,polymorphic. 2. Advanced chronic obstructive pulmonary disease/emphysema with exacerbation. 3. Patient is underweight/undernourished?. 4. Hypothyroidism. 5. Diabetes mellitus type 2. RECOMMENDATIONS: At this point in time the patient seems to be stable. We will monitor her for one more night, and we will allow her to go home tomorrow if no further arrhythmia is documented. She will proceed to have an outpatient heart catheterization with Dr. Paul Weathers in [place], with whom I spoke this morning about her case. That will be an outpatient procedure. I suspect that her arrhythmia may have been more medication induced and metabolically induced; however, she does have indeed evidence of coronary atherosclerosis on CT scan of the chest, being the reason why I am recommending the heart catheterization. Thank you again. cc: MD Josh Blackwell [facility]
[2018-06-02] MEDS: PREDNISONE PO SCH (21:10)
[2018-06-02] MEDS: ZOFRAN IV PRN (23:44)
[2018-06-03] MEDS: LOPRESSOR PO SCH ×2 (02:55→11:36)
[2018-06-03] MEDS: CARDIZEM PO SCH ×2 (02:55→08:34)
[2018-06-03] MEDS: HUMALOG SUBQ SCH ×2 (06:09→06:19)
[2018-06-03] MEDS: SYNTHROID PO SCH (06:10)
[2018-06-03] MEDS: BROVANA NEB INH SCH (07:34)
[2018-06-03] MEDS ORDERED: BROVANA NEB ONE (07:39)
[2018-06-03] MEDS: ZANAFLEX PO SCH (08:34)
[2018-06-03] MEDS: GLUCOPHAGE PO SCH (08:34)
[2018-06-03] MEDS: LEVAQUIN 250 MG/D5W 250 MG/50 ML IVPB IV SCH (08:34)
[2018-06-03] MEDS: PAXIL PO SCH (08:34)
[2018-06-03] MEDS: KLONOPIN PO SCH (08:35)
[2018-06-03] MEDS: JANUVIA PO SCH (08:35)
[2018-06-03] MEDS: MYCOSTATIN SUSP PO SCH (08:36)
--- NOTE | 2018-06-03 09:15 | DISCHARGE SUMMARY ---
ADMISSION DATE: 05/25/2018 DISCHARGE DATE: 06/03/2018 HISTORY: Ms. Rojas who is a 78-year-old white female who had a known case of COPD was admitted with acute exacerbation of acute bronchitis. She had acute respiratory failure on top of COPD, mature onset diabetes, hypertension, severe anxiety, and chronic urticaria. COURSE IN HOSPITAL: She was treated with bronchodilators, IV steroids, as well as IV antibiotics. She continued to get better, and finally we decided to send her home. We tapered the steroid dosage, and put her on prednisone 10 mg by mouth. At the time on the day of discharge, she developed evidence of ventricular tachycardia and had several episodes of them. Thereafter, Cardiology consult was made, and she was seen by Dr. Humphrey, who transferred her to CICU. She had further workup done. There was coronary artery calcification noted. Echocardiogram was unremarkable. The patient had normal sinus rhythm with right atrial enlargement probably secondary from COPD. Echocardiogram was a difficult study. There was normal left ventricle noted. No pericardial effusion was noted. There was normal central venous pressure as from the looks of inferior vena cava. There was no structural abnormality in the aortic wall. She had paroxysmal nonsustained ventricular tachycardia which was polymorphic. Dr. Humphrey thought that she needed arteriogram to rule out severe coronary artery disease, and he has made arrangements with Dr. Weathers at [facility]. We are going to discharge Ms. Yoselyn Rojas today, and she will be going to [place]. In the meantime, she is going to continue the current management. She will be going there tomorrow for an arteriogram. She knows that, and her family is going to take her. We will discharge her today. cc: Josh Guzman MD
[2018-06-03 11:18] VITALS: BP 92/61
== END 2018-06-03 11:58 | disposition home or self-care (01) | DRG 190 ==
LOC: SUPCPDRO → ED 04:06 → 4N 08:31 → 3S 05-31 11:40
PROVIDERS: ADMIT Internal Medicine; ATTEND Internal Medicine
CPT/HCPCS: 71010; 71045; 80048; 80053; 80061; 81001; 82550; 82805; 82948; 83605; 83735; 83880; 84439; 84443; 84484; 85025; 85379; 85651; 86140; 87040; 87275; 87276; 87804; 93005; 93010; 93306; 94640; 94761; 96365; 96366; 96375; 99285; 99291; A9270; C8929; J1815; J1956; J2270; J2405; J2920; J2930; J3475; J7030; J7040; J7506; J7512; Q9957; XXXXX

== ENCOUNTER 2018-07-14 14:51 | Inpatient (IN) ==
--- NOTE | 2018-07-14 16:55 | EKG Report ---
Test Performed on : 07/14/2018 4:38:37 PM Test Reason : COPD Blood Pressure : / mmHG Vent. Rate : 109 BPM Atrial Rate : 109 BPM P-R Int : 130 ms QRS Dur : 076 ms QT Int : 344 ms P-R-T Axes : 080 079 081 degrees QTc Int : 463 ms Sinus tachycardia. with premature supraventricular complexes. Right atrial enlargement Borderline ECG When compared with ECG of 02-JUN-2018 06:41, premature supraventricular complexes. are now present Confirmed by Harsh STAHL, Samm Melo ([id number]) on 07/15/2018 8:46:57 AM
[2018-07-14 17:01] LABS: ALLEN TEST YES; BE 9.5 mmoll (-3.0-3.0); BLOOD TYPE ARTERIAL; HCO3-(ACT) 32.3 mmoll (20.0-26.0); METHB 0.5 % (0.0-1.5); MODALITY CANNULA; O2(CT) 13.9 mL/dL (15.0-23.0); O2HB 96.6 % (95.0-99.0); PO2(98.6) 105 mmHg (60-100); SAMPLE BLOOD; SAO2 97.3 % (95.0-100.0); THB 10.1 g/dL (11.5-17.4); pH(98.6) 7.32 (7.35-7.45)
[2018-07-14 17:02] LABS: PCO2(98.6) 73 mmHg (35-45)
--- NOTE | 2018-07-14 17:30 | CARDIOLOGY CONSULTATION ---
DATE: 07/14/2018 CHIEF COMPLAINT: Shortness of breath, weakness. HISTORY OF PRESENT ILLNESS: Ms. Rojas is a 78-year-old white female who was recently admitted to the hospital in May with cardiac catheterization performed as an outpatient over in [place] in late May. She presented to Dr. Guzman's office today with complaints of weakness and it sounds like a cough. The cough has been worse over the last several weeks, where she has been coughing up and coughing more often. She denies any overt fevers. She has had no chest pain. She has had return of a pain she has had in the past that is located in the bilateral upper quadrants with radiation around to the back. There is no exertional component. This episode of pain has been present for around 3 to 4 days, again with no specific provokers or palliators. She denies any overt nausea or vomiting. PAST MEDICAL HISTORY: 1. Significant for severe COPD, on home oxygen therapy. 2. Diabetes. 3. Coronary disease identified by cardiac cath in May of 2018 showing normal left main. Mild luminal irregularities in the proximal LAD, 20% lesion in the second diagonal. The circumflex was normal. The RCA was normal. SOCIAL HISTORY: She is retired, . She does not currently smoke. FAMILY HISTORY: Mother had esophageal cancer. Father had some sort of heart disease and at the age of 65. REVIEW OF SYSTEMS: A 10 system review of systems is negative except for those things mentioned in the HPI. PHYSICAL EXAMINATION: Vital signs: Patient is afebrile. Heart rate of 100, blood pressure 122/75. General: She is in no acute distress. HEENT: Oropharynx is moist. Poor dentition. Eye examination shows pink conjunctivae, white sclerae. Neck: Shows no obvious thyromegaly or thyroid tenderness. Cardiovascular: She sounds to be in a regular rate and rhythm. She has no obvious murmurs. She has no S3. She has no lower extremity edema. No carotid bruits. Chest: Notable for bilateral end-expiratory wheezes throughout all lung spence. Somewhat poor breath sounds heard. She had a prolonged expiratory phase. Coughed several times during the exam. Abdomen: Soft, nontender, nondistended. She has no obvious organomegaly. Skin: Warm and dry throughout without any rashes. Neurological: Moving all extremities well. She has no lateralizing deficits. Psychiatric: Alert, oriented, pleasant. Normal mood and affect. PERTINENT DATA: Her EKG shows mild sinus tachycardia. This was from 1638 today. Rate was 109 beats per minute. No ischemic changes. No signs of infarct. Cardiac catheterization as detailed above in the past medical history. She had an echo back in May which demonstrated a normal ejection fraction of 60%. She had no significant valvular abnormalities. Evidence for mild left ventricular hypertrophy. Lab data currently is pending. ASSESSMENT: Ms. Rojas is a 78-year-old female who presented to her primary care physician's office with complaints of weakness and cough. PLAN: At this point, I do not see the need to pursue any further invasive cardiac evaluations. She has had a recent echocardiogram as well as a cardiac catheterization which did not demonstrate any significant coronary disease or cardiac disease. We will follow up on her laboratories. She did have some evidence of nonsustained ventricular tachycardia on her last admission. This has been evaluated fully with thyroids on the last study being normal. She has a normal ejection fraction and no significant coronary disease. Please contact us if we can be of further assistance with this patient. cc: MD Josh Martin MD
[2018-07-14] MEDS: LEVAQUIN 750 MG/D5W 750 MG/150 ML IVPB IV SCH (17:33)
[2018-07-14] MEDS: SOLU-MEDROL IV SCH ×2 (17:33→21:49)
[2018-07-14 17:36] LABS: BASO# 0.03 X1000 (0.0-0.2); BASO% 0.2 % (0.0-0.8); HEMATOCRIT 37.4 % (37.0-47.0); HEMOGLOBIN 10.6 g/dL (12.0-16.0); IMM GRAN# 0.15 X1000 (0.0-0.04); IMM GRAN% 0.9 % (0.0-0.5); LYMPH# 1.89 X1000 (1.2-3.4); LYMPH% 11.9 % (20.5-51.1); MCH 24.7 PG (27-31); MCHC 28.3 g/dL (33-37); MCV 87.2 FL (81-99); MONO# 0.56 X1000 (0.11-0.59); MONO% 3.5 % (1.7-9.3); MPV 9.6 FL (7.4-10.4); NEUT# 13.29 X1000 (1.4-6.5); NEUT% 83.5 % (42.2-75.2); PLT 402 X1000 (130-400); RBC 4.29 XMIL (4.2-5.4); RDW 14.3 % (11.5-14.5); WBC 15.92 X1000 (4.8-10.8)
[2018-07-14 17:48] LABS: ESTIMATED GFR > 60
[2018-07-14 17:49] LABS: AGAP 11; ALB/GLOB RATIO 1.1; ALBUMIN 3.5 g/dL (3.5-5.0); ALKALINE PHOSPHATASE 161 U/L (32-104); BUN 21 mg/dL (8-22); CALCIUM 9.1 mg/dL (8.8-10.2); CHLORIDE 87 mmol/L (98-107); COSMO 279; CREATININE 0.9 mg/dL (0.5-0.9); GLUCOSE 310 mg/dL (70-104); GOT 11 U/L (10-30); GPT 7 U/L (10-36); POTASSIUM 5.7 mmol/L (3.5-5.1); SODIUM 132 mmol/L (136-145); TCO2 34 mmol/L (25-35); TOTAL BILIRUBIN 0.19 mg/dL (0.20-1.00); TOTAL PROTEIN 6.7 g/dL (6.3-8.3)
--- NOTE | 2018-07-14 20:51 | Diag Imaging Result Doc PS360 ---
EXAM: CHEST-2 VIEWS INDICATION: COPD TECHNIQUE: 2 views COMPARISON: 05/25/2018 FINDINGS: The lungs are hyperinflated, stable. The lungs are grossly clear. There is no discrete pleural fluid collection or pneumothorax. The cardiomediastinal silhouette and central vasculature are grossly unremarkable. IMPRESSION: Stable COPD changes. No definite acute pathology by plain radiograph. Electronically signed by Zaid Mcgee 07/14/2018 8:48 PM
[2018-07-14] MEDS: TESSALON PO PRN (21:26)
[2018-07-14] MEDS: PRAVACHOL PO SCH (21:26)
[2018-07-14] MEDS: KLONOPIN PO PRN (21:26)
[2018-07-14] MEDS: LOPRESSOR PO SCH (21:26)
[2018-07-14] MEDS: CARDIZEM PO SCH (21:35)
[2018-07-14] MEDS: DUONEB (A & A) INH SCH (21:52)
[2018-07-14] MEDS ORDERED: KLONOPIN PO SCH (22:00)
[2018-07-15] MEDS: CARDIZEM PO SCH ×4 (03:14→21:20)
[2018-07-15] MEDS: DUONEB (A & A) INH SCH ×4 (03:38→21:05)
[2018-07-15] MEDS: SOLU-MEDROL IV SCH ×4 (05:40→21:19)
[2018-07-15] MEDS: LOPRESSOR PO SCH ×3 (05:41→21:20)
[2018-07-15] MEDS: SYNTHROID PO SCH (06:02)
[2018-07-15] MEDS: PAXIL PO SCH (08:39)
[2018-07-15] MEDS: ASPIRIN PO SCH (08:40)
[2018-07-15] MEDS: GLUCOPHAGE PO SCH ×3 (08:40→17:00)
[2018-07-15] MEDS: JANUVIA PO SCH (08:40)
[2018-07-15] MEDS ORDERED: VANCOMYCIN IV PER PHARMACY MISC SCH (09:00)
--- NOTE | 2018-07-15 09:21 | PROGRESS NOTE ---
DATE: 07/15/2018 SUBJECTIVE: Ms. Rojas seems to have sepsis. She had a Cardiology consultation yesterday because of polymorphic ventricular tachycardia for which she was worked up. Dr. Harshil Vega had seen her yesterday. Her EKG showed sinus tachycardia, right atrial enlargement. Chest x-ray shows changes of COPD. No pneumonia. LABORATORY DATA: Revealed leukocytosis. White count was 15.92. Blood gases revealed pCO2 of 73 indicating respiratory failure. Lactate level was 3.8, which is somewhat higher indicative of sepsis. The cultures have been done. We are putting her on steroids, as well as IV Levaquin. We will add IV vancomycin today. -4 cc: Johs Guzman MD
--- NOTE | 2018-07-15 09:47 | HISTORY AND PHYSICAL ---
HISTORY: Ms. Rojas is a 78-year-old white female, who came to the office with severe shortness of breath, cough, repeated sputum expectoration and yellowish sputum. She was very congested in the chest. Moreover, she was hypotensive. Systolic blood pressure was only 80 in the office. She was admitted. She has a known case of severe COPD. Last admission, she had polymorphic ventricular tachycardia, and was sent to [place] for arteriogram. She had some blockage for which was treated with medications. 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 ALLERGIES: Ms. Rojas is allergic to codeine. SOCIAL HISTORY: She has never smoked, however, she was exposed to secondhand smoking on account of her who smoked constantly in her presence. No history of alcoholism. REVIEW OF SYSTEMS: Noncontributory except for intermittent low-grade fever. PHYSICAL EXAMINATION: VITAL SIGNS: Reveal temperature normal, pulse 88 per minute, respiratory rate 18 per minute, and blood pressure 114/77. HEENT: Head normocephalic. Pupils PERRLA. Fundus examination not done. NECK: Supple. JVP normal. ENT examination unremarkable. There is no evidence of lymphadenopathy, thyroid enlargement, anemia, cyanosis or clubbing. Pedal pulses well felt. BREASTS: Exam not done. CHEST: Normal to inspection. LUNGS: Bilateral expiratory wheezing with occasional rales. PMI in the normal position. HEART: Sounds normal. No murmur, gallop or rub noted. ABDOMEN: Nondistended. Hernial orifices normal. No guarding, rigidity, free fluid, masses, or organomegaly. Bowel sounds normal. RECTAL: Exam deferred. IMPREGNATOR ELECTROLYTIC CAPACITORS: Higher functions normal. Cranial nerves normal. Motor and sensory system examination unremarkable. Deep tendon reflexes normal. Plantars downgoing. Skull and spine examination normal for age. No cerebellar signs or signs of meningeal irritation. Local motor exam. SKIN: Unremarkable. CLINICAL IMPRESSION: Acute exacerbation of COPD. Patient seems to have sepsis and mild hypotension. We have done the cultures and have put her on Levaquin as well as IV steroids, and respiratory therapy. cc: Josh Guzman MD
[2018-07-15] MEDS ORDERED: VANCOMYCIN 1,400 MG in NS 250 ML IV ONE (10:00)
[2018-07-15 10:34] LABS: URINE SOURCE CLEAN CATCH
[2018-07-15] MEDS: KLONOPIN PO PRN (10:37)
[2018-07-15] MEDS: TESSALON PO PRN (10:37)
[2018-07-15 10:46] LABS: BILIRUBIN URINE NEGATIVE (NEGATIVE); BLOOD URINE NEGATIVE (NEGATIVE); COLOR YELLOW; GLUCOSE URINE 300 mg/dL (NEGATIVE); KETONE URINE NEGATIVE (NEGATIVE); LEUKOCYTES URINE NEGATIVE (NEGATIVE); NITRITE URINE NEGATIVE (NEGATIVE); PROTEIN URINE NEGATIVE (NEGATIVE); SP GRAVITY URINE 1.002; TURBIDITY URINE CLEAR (CLEAR); UROBILINOGEN URINE NORMAL (NORMAL)
[2018-07-15 10:48] LABS: UR EPITHELIAL CELLS <10 /HPF (<10); URINE BACTERIA NEGATIVE /HPF; URINE RBC <10 /HPF (<10); URINE WBC <10 /HPF (<10)
[2018-07-15] MEDS: LEVAQUIN 750 MG/D5W 750 MG/150 ML IVPB IV SCH ×2 (15:42→17:00)
[2018-07-15] MEDS: PRAVACHOL PO SCH (21:20)
[2018-07-16] MEDS: CARDIZEM PO SCH ×4 (02:36→21:56)
[2018-07-16] MEDS: SOLU-MEDROL IV SCH ×4 (02:36→21:57)
[2018-07-16] MEDS: DUONEB (A & A) INH SCH ×4 (03:12→21:10)
[2018-07-16 04:37] LABS: ALLEN TEST YES; BE 14.3 mmoll (-3.0-3.0); BLOOD TYPE ARTERIAL; HCO3-(ACT) 36.1 mmoll (20.0-26.0); METHB 0.3 % (0.0-1.5); O2(CT) 11.5 mL/dL (15.0-23.0); PO2(98.6) 89 mmHg (60-100); SAMPLE BLOOD; SAO2 98.4 % (95.0-100.0); THB 8.3 g/dL (11.5-17.4); pH(98.6) 7.39 (7.35-7.45)
[2018-07-16 04:38] LABS: MODALITY BI PAP; PCO2(98.6) 68 mmHg (35-45)
[2018-07-16] MEDS: LOPRESSOR PO SCH ×3 (05:00→21:56)
[2018-07-16] MEDS: HUMALOG SUBQ SCH ×4 (06:05→21:59)
[2018-07-16] MEDS: SYNTHROID PO SCH (06:07)
[2018-07-16] MEDS: ASPIRIN PO SCH (10:11)
[2018-07-16] MEDS: GLUCOPHAGE PO SCH ×2 (10:11→16:44)
[2018-07-16] MEDS: PAXIL PO SCH (10:11)
[2018-07-16] MEDS: JANUVIA PO SCH (10:11)
--- NOTE | 2018-07-16 12:30 | PROGRESS NOTE ---
DATE: 07/16/2018 Ms. Rojas is doing somewhat better. She is on IV vanc as well as Levaquin as well as IV steroids. She is feeling somewhat better. We will repeat arterial blood gases this morning. The lactate level has come down from 3.8 to 1.4, which is significant. Her electrolytes reveal some mild hyperkalemia. Otherwise, she is doing better. We will continue with the current management. cc: Josh Guzman MD
[2018-07-16] MEDS: LEVAQUIN 750 MG/D5W 750 MG/150 ML IVPB IV SCH (16:44)
[2018-07-16] MEDS: PRAVACHOL PO SCH (21:56)
[2018-07-16] MEDS: VANCOMYCIN 1,200 MG in NS 250 ML IV SCH (22:02)
[2018-07-17] MEDS: KLONOPIN PO PRN ×2 (00:07→18:06)
[2018-07-17] MEDS: SOLU-MEDROL IV SCH ×4 (03:10→20:54)
[2018-07-17] MEDS: CARDIZEM PO SCH ×4 (03:10→20:54)
[2018-07-17] MEDS: DUONEB (A & A) INH SCH ×4 (03:51→22:49)
[2018-07-17] MEDS: LOPRESSOR PO SCH ×3 (05:24→20:54)
[2018-07-17] MEDS: SYNTHROID PO SCH (06:51)
[2018-07-17] MEDS: HUMALOG SUBQ SCH ×4 (06:51→20:54)
[2018-07-17] MEDS: JANUVIA PO SCH (08:32)
[2018-07-17] MEDS: ASPIRIN PO SCH (08:33)
[2018-07-17] MEDS: GLUCOPHAGE PO SCH ×2 (08:33→17:59)
[2018-07-17] MEDS: PAXIL PO SCH (08:33)
[2018-07-17 10:26] LABS: ALLEN TEST NO; BE 11.4 mmoll (-3.0-3.0); BLOOD TYPE ARTERIAL; HCO3-(ACT) 33.8 mmoll (20.0-26.0); METHB 0.3 % (0.0-1.5); O2(CT) 14.1 mL/dL (15.0-23.0); O2HB 97.8 % (95.0-99.0); PO2(98.6) 164 mmHg (60-100); SAMPLE BLOOD; SAO2 98.3 % (95.0-100.0); pH(98.6) 7.37 (7.35-7.45)
[2018-07-17 11:47] LABS: MODALITY CANNULA; PCO2(98.6) 67 mmHg (35-45)
--- NOTE | 2018-07-17 13:19 | PROGRESS NOTE ---
DATE: 07/17/2018 SUBJECTIVE: Ms. Yoselyn Rojas has been on IV Levaquin, as well as vancomycin. Her lactate level is still 3.20. Arterial blood gases continue to reveal some decrease in the pCO2. However, the lactate level has gone up some. We are going to continue the IV antibiotics. -0 cc: Josh Guzman MD
[2018-07-17] MEDS: LEVAQUIN 750 MG/D5W 750 MG/150 ML IVPB IV SCH (17:58)
[2018-07-17] MEDS: PRAVACHOL PO SCH (20:54)
[2018-07-18] MEDS: CARDIZEM PO SCH ×4 (02:36→20:19)
[2018-07-18] MEDS: SOLU-MEDROL IV SCH ×3 (02:36→18:09)
[2018-07-18] MEDS: DUONEB (A & A) INH SCH ×5 (04:05→22:20)
[2018-07-18] MEDS: SYNTHROID PO SCH (06:21)
[2018-07-18] MEDS: HUMALOG SUBQ SCH ×4 (06:21→20:19)
[2018-07-18 07:23] LABS: EOS# 0.02 X1000 (0.0-0.7); EOS% 0.2 % (0.0-10.0); HEMATOCRIT 33.5 % (37.0-47.0); HEMOGLOBIN 9.7 g/dL (12.0-16.0); IMM GRAN# 0.11 X1000 (0.0-0.04); IMM GRAN% 0.9 % (0.0-0.5); LYMPH# 1.28 X1000 (1.2-3.4); LYMPH% 10.1 % (20.5-51.1); MCH 24.4 PG (27-31); MCV 84.4 FL (81-99); MONO# 0.18 X1000 (0.11-0.59); MONO% 1.4 % (1.7-9.3); MPV 9.6 FL (7.4-10.4); NEUT# 11.07 X1000 (1.4-6.5); NEUT% 87.4 % (42.2-75.2); PLT 365 X1000 (130-400); RBC 3.97 XMIL (4.2-5.4); RDW 14.6 % (11.5-14.5); WBC 12.66 X1000 (4.8-10.8)
[2018-07-18 07:50] LABS: AGAP 5; BUN 33 mg/dL (8-22); CALCIUM 8.8 mg/dL (8.8-10.2); CHLORIDE 95 mmol/L (98-107); COSMO 287; CREATININE 0.9 mg/dL (0.5-0.9); ESTIMATED GFR > 60; GLUCOSE 177 mg/dL (70-104); POTASSIUM 4.8 mmol/L (3.5-5.1); SODIUM 138 mmol/L (136-145); TCO2 38 mmol/L (25-35)
[2018-07-18] MEDS: ASPIRIN PO SCH (09:37)
[2018-07-18] MEDS: LOPRESSOR PO SCH ×2 (09:37→18:08)
[2018-07-18] MEDS: JANUVIA PO SCH (09:37)
[2018-07-18] MEDS: PAXIL PO SCH (09:37)
[2018-07-18] MEDS: GLUCOPHAGE PO SCH ×2 (09:38→18:10)
[2018-07-18] MEDS: VANCOMYCIN 1,200 MG in NS 250 ML IV SCH (09:39)
--- NOTE | 2018-07-18 12:25 | PROGRESS NOTE ---
DATE: 07/18/2018 Ms Rojas is doing better. Her lungs still reveal bilateral expiratory wheezing. She is getting IV vancomycin and Levaquin for her sepsis. We are reducing the Solu-Medrol today. Vital signs are stable. Her white count was 12.66, hemoglobin 9.7, hematocrit 33.5. Blood sugar was 177. -2 cc: Josh Guzman MD
[2018-07-18] MEDS: LEVAQUIN 750 MG/D5W 750 MG/150 ML IVPB IV SCH (18:10)
[2018-07-18] MEDS: PRAVACHOL PO SCH (20:19)
[2018-07-18] MEDS: KLONOPIN PO PRN (22:16)
[2018-07-19] MEDS: LOPRESSOR PO SCH ×3 (00:55→15:17)
[2018-07-19] MEDS: CARDIZEM PO SCH ×5 (00:56→21:17)
[2018-07-19] MEDS: SOLU-MEDROL IV SCH ×3 (00:56→17:28)
[2018-07-19] MEDS: DUONEB (A & A) INH SCH ×4 (03:35→22:50)
[2018-07-19] MEDS: SYNTHROID PO SCH (06:15)
[2018-07-19] MEDS: HUMALOG SUBQ SCH ×4 (06:15→21:19)
--- NOTE | 2018-07-19 08:32 | PROGRESS NOTE ---
DATE: 07/19/2018 Ms. Rojas is improving except that she has continuing congestion. She has some conjunctivitis as well as stomatitis. We will treat them appropriately with TobraDex and nystatin swish and swallow. -3 cc: Josh Guzman MD
[2018-07-19] MEDS: ASPIRIN PO SCH (09:57)
[2018-07-19] MEDS: GLUCOPHAGE PO SCH ×2 (09:57→17:28)
[2018-07-19] MEDS: JANUVIA PO SCH (09:57)
[2018-07-19] MEDS: PAXIL PO SCH (09:58)
[2018-07-19] MEDS: MYCOSTATIN SUSP PO SCH ×4 (10:18→21:17)
[2018-07-19] MEDS: TOBRADEX OPH SUSP BOTH EYES SCH ×3 (10:19→21:15)
[2018-07-19] MEDS: LEVAQUIN 750 MG/D5W 750 MG/150 ML IVPB IV SCH (17:28)
[2018-07-19] MEDS: PRAVACHOL PO SCH (21:17)
[2018-07-19] MEDS: VANCOMYCIN 1,200 MG in NS 250 ML IV SCH (22:46)
[2018-07-20] MEDS: LOPRESSOR PO SCH ×3 (00:11→18:05)
[2018-07-20] MEDS: CARDIZEM PO SCH ×4 (01:37→21:27)
[2018-07-20] MEDS: SOLU-MEDROL IV SCH ×2 (01:37→14:25)
[2018-07-20] MEDS: TOBRADEX OPH SUSP BOTH EYES SCH ×4 (01:38→21:29)
[2018-07-20] MEDS: DUONEB (A & A) INH SCH ×4 (03:25→23:00)
[2018-07-20] MEDS: SYNTHROID PO SCH (06:00)
[2018-07-20] MEDS: HUMALOG SUBQ SCH ×4 (06:01→21:28)
[2018-07-20] MEDS: PAXIL PO SCH (09:23)
[2018-07-20] MEDS: ASPIRIN PO SCH (09:23)
[2018-07-20] MEDS: MYCOSTATIN SUSP PO SCH ×4 (09:23→21:27)
[2018-07-20] MEDS: JANUVIA PO SCH (09:24)
[2018-07-20] MEDS: GLUCOPHAGE PO SCH ×2 (09:24→18:06)
--- NOTE | 2018-07-20 09:40 | PROGRESS NOTE ---
DATE: 07/20/2018 SUBJECTIVE: Ms. Rojas is in about the same general condition. She is feeling better. She has some extra redness of the facial skin, especially on the malar aspect. This is probably because of the air flowing from the BiPAP machine according to her. We will try to use some 2% hydrocortisone lotion on her. -0 cc: Josh Guzman MD
[2018-07-20 11:20] LABS: ALLEN TEST YES; BLOOD TYPE ARTERIAL; HCO3-(ACT) 33.5 mmoll (20.0-26.0); O2(CT) 14.5 mL/dL (15.0-23.0); O2HB 97.8 % (95.0-99.0); PO2(98.6) 148 mmHg (60-100); SAMPLE BLOOD; SAO2 98.1 % (95.0-100.0); THB 10.3 g/dL (11.5-17.4); pH(98.6) 7.44 (7.35-7.45)
[2018-07-20 11:23] LABS: MODALITY CANNULA; PCO2(98.6) 54 mmHg (35-45)
[2018-07-20] MEDS: HYDROCORTISONE 2.5% LOTION TOP SCH ×2 (11:53→21:27)
--- NOTE | 2018-07-20 13:23 | Diag Imaging Result Doc PS360 ---
EXAM: CHEST-PORTABLE HISTORY: resp. failure TECHNIQUE: Chest single view COMPARISON: 07/14/2018 FINDINGS: The lungs are hyperexpanded. The heart is not enlarged. The vessels are small. There are no infiltrates. No effusion identified. IMPRESSION: Emphysema Electronically signed by Hira Lambert 07/20/2018 1:21 PM
[2018-07-20] MEDS: LEVAQUIN 750 MG/D5W 750 MG/150 ML IVPB IV SCH (18:06)
[2018-07-20] MEDS: KLONOPIN PO PRN (20:55)
[2018-07-20] MEDS: VANCOMYCIN 1,200 MG in NS 250 ML IV SCH (21:23)
[2018-07-20] MEDS: PRAVACHOL PO SCH (21:27)
[2018-07-20] MEDS: ZYRTEC PO SCH (21:28)
[2018-07-20] MEDS: PEPCID PO SCH (21:28)
--- NOTE | 2018-07-20 21:57 | PULMONOLOGY CONSULTATION ---
DATE: 07/20/2018 REQUESTING PHYSICIAN: Dr. Guzman. REASON FOR CONSULTATION: COPD with persistent sepsis. HISTORY OF PRESENT ILLNESS: Ms Rojas is a 78-year-old white female with asthma, chronic urticaria, with increasing difficulty from her asthma over the last 15 to 20 years. The patient has been allergy tested and allergy was negative. Previous IgE levels were low. The patient has been maintained on steroids but no documented eosinophilia has been identified. She was evaluated in Dr. Guzman's office with severe shortness of breath, wheezing, cough and sputum production along with marginal blood pressure. The patient has recently had nonsustained ventricular tachycardia with nonocclusive coronary arteries. The patient has been admitted to the hospital for the last 6 days and she has had lactates that have ranged from 3.8 to 4.3. She has evidence of chronic hypercapnic respiratory failure. PAST MEDICAL HISTORY: 1. Chronic urticaria. 2. Asthma. 3. Hypoxemic respiratory failure. 4. Diabetes mellitus. 5. Nonsustained ventricular cardia. 6. Nonobstructive coronary artery disease. SOCIAL HISTORY: The patient is a never smoker. No alcohol use. FAMILY HISTORY: Positive for heart disease and esophageal cancer. Other family members have had asthma or asthma like ill illnesses. Mother and father did not have any pulmonary symptoms. REVIEW OF SYSTEMS: As noted in the HPI. PHYSICAL EXAMINATION: General: Reveals a thin white female with mild work of breathing. BP 113/55, heart rate 89, respiratory rate 18, oxygen saturation 100% on nasal cannula. HEENT: Pupils are equal and reactive. Oropharynx is clear. Neck: Supple. Chest: Reveals diminished breath sounds bilaterally with diffuse wheezing. Cardiac: S1-S2. Abdomen: Soft. Extremities: Without edema. LABORATORIES: Chest x-ray reveals hyperinflation without acute infiltrates. White blood count on 07/20/2018 revealed white blood count 12.7, hemoglobin 9.7, platelet count 365,000 with 0.2% eosinophils. Lactate measured in the laboratory 4.4. IMPRESSION: A 78-year-old with 1. Asthma exacerbation. 2. Acute hypoxemic respiratory failure. 3. Chronic hypoxemic respiratory failure. 4. Chronic hypercapnic respiratory failure. 5. History of urticaria. 6. Nonsustained ventricular tachycardia. RECOMMENDATIONS: 1. We will add an H1 heather and an H2 heather to her regimen given known history of urticaria and possible histamine release contributing to current exacerbation. 2. Recommend discontinuing metformin until her current clinical situation improves. Metformin can lead to lactic acidosis. 3. The patient is having severe bronchospasm. Recommend weaning and discontinuing beta blockers as tolerated. The patient may need an increase in diltiazem dose if she has a reflex tachycardia. 4. Continue oxygen for hypoxemic respiratory failure. 5. Cycle BiPAP p.r.n. cc: MD Josh Haynes MD
[2018-07-21] MEDS: CARDIZEM PO SCH ×4 (02:33→20:59)
[2018-07-21] MEDS: SOLU-MEDROL IV SCH ×2 (02:33→14:24)
[2018-07-21] MEDS: TOBRADEX OPH SUSP BOTH EYES SCH ×4 (02:33→21:02)
[2018-07-21] MEDS: DUONEB (A & A) INH SCH ×4 (03:26→21:32)
[2018-07-21] MEDS: SYNTHROID PO SCH (06:06)
[2018-07-21] MEDS: HUMALOG SUBQ SCH ×4 (06:08→21:33)
[2018-07-21 07:00] LABS: BASO# 0.01 X1000 (0.0-0.2); BASO% 0.1 % (0.0-0.8); HEMATOCRIT 33.5 % (37.0-47.0); HEMOGLOBIN 9.7 g/dL (12.0-16.0); IMM GRAN% 1.6 % (0.0-0.5); LYMPH# 1.05 X1000 (1.2-3.4); LYMPH% 8.4 % (20.5-51.1); MCH 24.3 PG (27-31); MCV 83.8 FL (81-99); MONO# 0.51 X1000 (0.11-0.59); MONO% 4.1 % (1.7-9.3); MPV 9.4 FL (7.4-10.4); NEUT# 10.74 X1000 (1.4-6.5); NEUT% 85.8 % (42.2-75.2); PLT 307 X1000 (130-400); RDW 15.2 % (11.5-14.5); WBC 12.51 X1000 (4.8-10.8)
[2018-07-21 07:44] LABS: AGAP 8; ALB/GLOB RATIO 1.3; ALBUMIN 2.8 g/dL (3.5-5.0); ALKALINE PHOSPHATASE 71 U/L (32-104); BUN 27 mg/dL (8-22); CALCIUM 8.2 mg/dL (8.8-10.2); CHLORIDE 95 mmol/L (98-107); COSMO 282; CREATININE 0.7 mg/dL (0.5-0.9); ESTIMATED GFR > 60; GLUCOSE 185 mg/dL (70-104); GOT 9 U/L (10-30); GPT 6 U/L (10-36); MAGNESIUM 1.9 mg/dL (1.5-2.7); PHOSPHORUS 3.2 mg/dL (2.7-4.5); POTASSIUM 4.7 mmol/L (3.5-5.1); SODIUM 136 mmol/L (136-145); TCO2 33 mmol/L (25-35); TOTAL BILIRUBIN 0.16 mg/dL (0.20-1.00); TOTAL PROTEIN 4.9 g/dL (6.3-8.3)
--- NOTE | 2018-07-21 09:24 | PROGRESS NOTE ---
DATE: 07/21/2018 Ms. Rojas had persistent lactic acid. Dr. Vásquez was consulted. We have stopped the metformin upon his recommendation and that could be responsible for the persistence of lactic acid in the system. She still has some expiratory wheezing. She is on a tapering dose of Solu-Medrol as well as IV antibiotics. We will continue with the current management. -8 cc: Josh Guzman MD
[2018-07-21] MEDS: ASPIRIN PO SCH (09:39)
[2018-07-21] MEDS: HYDROCORTISONE 2.5% LOTION TOP SCH ×2 (09:39→21:22)
[2018-07-21] MEDS: JANUVIA PO SCH (09:39)
[2018-07-21] MEDS: LOPRESSOR PO SCH ×2 (09:40→20:59)
[2018-07-21] MEDS: MYCOSTATIN SUSP PO SCH ×4 (09:40→21:01)
[2018-07-21] MEDS: PAXIL PO SCH (09:41)
[2018-07-21] MEDS: PEPCID PO SCH ×2 (09:41→21:00)
[2018-07-21] MEDS: KLONOPIN PO PRN (14:58)
[2018-07-21] MEDS: LEVAQUIN 750 MG/D5W 750 MG/150 ML IVPB IV SCH (17:17)
--- NOTE | 2018-07-21 19:22 | PULMONOLOGY PROGRESS NOTE ---
DATE: 07/21/2018 SUBJECTIVE: The patient is awake, alert, and conversant. She reports her breathing has marginally improved. She reports her airways appear looser and more productive. OBJECTIVE: Vital Signs: BP 122/62, heart rate 80, respiratory rate 20, oxygen saturation 100%. HEENT: Pupils are equal and reactive. Oropharynx appears clear. Neck: Supple. Chest: Reveals bilateral rhonchi and wheezing. Cardiac: S1, S2. Abdomen: Soft. Extremities: Are without edema. LABORATORIES: Total IgG level is low at 457. White blood count 12.5, hemoglobin 9.7, platelet count 307,000. Sodium 136, potassium 4.7, chloride 95, bicarbonate 33, BUN 27, creatinine 0.7. IMPRESSION: 1. A 78-year-old with asthma exacerbation. 2. Acute hypoxemic respiratory failure. 3. Chronic hypoxemic respiratory failure. 4. Chronic hypercapnic respiratory failure. 5. Chronic urticaria. 6. Immunoglobulin deficiency. PLAN: 1. Continue current steroid dosing. 2. Consider further decrease beta heather tomorrow if her heart rate remains controlled. 3. Continue current antibiotic regimen. 4. We will give a dose of immunoglobulin in the morning. This may be in part the reason that she has been delayed and improving. cc: MD Josh Haynes MD
[2018-07-21] MEDS: VANCOMYCIN 1,200 MG in NS 250 ML IV SCH (20:59)
[2018-07-21] MEDS: ZYRTEC PO SCH (21:00)
[2018-07-21] MEDS: PRAVACHOL PO SCH (21:00)
[2018-07-22] MEDS: DUONEB (A & A) INH SCH ×4 (03:05→21:10)
[2018-07-22] MEDS: SOLU-MEDROL IV SCH ×2 (03:55→14:51)
[2018-07-22] MEDS: TOBRADEX OPH SUSP BOTH EYES SCH ×4 (03:55→21:02)
[2018-07-22] MEDS: CARDIZEM PO SCH ×4 (03:55→20:51)
[2018-07-22] MEDS ORDERED: GAMUNEX-C 10% IV ONE (06:00)
[2018-07-22] MEDS: SYNTHROID PO SCH (06:26)
[2018-07-22] MEDS: HUMALOG SUBQ SCH ×4 (06:27→21:00)
[2018-07-22] MEDS: JANUVIA PO SCH (09:08)
[2018-07-22] MEDS: MYCOSTATIN SUSP PO SCH ×4 (09:08→20:51)
[2018-07-22] MEDS: PEPCID PO SCH ×2 (09:09→20:51)
[2018-07-22] MEDS: PAXIL PO SCH (09:09)
[2018-07-22] MEDS: LOPRESSOR PO SCH ×2 (09:09→20:51)
[2018-07-22] MEDS: ASPIRIN PO SCH (09:10)
--- NOTE | 2018-07-22 09:55 | PROGRESS NOTE ---
DATE: 07/22/2018 Ms. Rojas gammaglobulin level was low, and she was given 20 g of IV immunoglobulins yesterday ordered by Dr. Vásquez. Overall condition is otherwise stable. We will continue with the current management. I am going to order arterial blood gases to find out about lactate levels as well as her respiratory status. -9 cc: Josh Guzman MD
[2018-07-22 10:00] LABS: ALLEN TEST YES; BE 10.6 mmoll (-3.0-3.0); BLOOD TYPE ARTERIAL; HCO3-(ACT) 33.2 mmoll (20.0-26.0); METHB 0.3 % (0.0-1.5); O2(CT) 14.6 mL/dL (15.0-23.0); O2HB 96.9 % (95.0-99.0); PO2(98.6) 98 mmHg (60-100); SAMPLE BLOOD; SAO2 97.3 % (95.0-100.0); THB 10.6 g/dL (11.5-17.4); pH(98.6) 7.39 (7.35-7.45)
[2018-07-22 10:02] LABS: MODALITY CANNULA; PCO2(98.6) 62 mmHg (35-45)
[2018-07-22] MEDS: HYDROCORTISONE 2.5% LOTION TOP SCH ×2 (11:39→22:43)
[2018-07-22] MEDS: LEVAQUIN 750 MG/D5W 750 MG/150 ML IVPB IV SCH (17:32)
[2018-07-22] MEDS: VANCOMYCIN 1,200 MG in NS 250 ML IV SCH (20:50)
[2018-07-22] MEDS: ZYRTEC PO SCH (20:51)
[2018-07-22] MEDS: PRAVACHOL PO SCH (20:51)
--- NOTE | 2018-07-22 21:45 | PULMONOLOGY PROGRESS NOTE ---
DATE: 07/22/2018 SUBJECTIVE: The patient is awake, alert, and conversant. She reports her breathing has improved. She has less shortness of breath, and her voice is stronger. OBJECTIVE: Vital Signs: Blood pressure 106/55, heart rate 83, respiratory rate 16, oxygen saturation 100% on 2 liters per nasal cannula. HEENT: Pupils are equal and reactive. Oropharynx is clear. Neck: Supple. Chest: Reveals less crackles and wheezing bilaterally. Cardiac: S1 and S2. Abdomen: Soft. Extremities: Without edema. LABORATORIES: Arterial blood gas reveals a pH of 7.39, pCO2 of 62, pO2 of 98. Her lactic acidosis has resolved at 2.2. Chemistries reveal a plasma lactate of 1. IMPRESSION: A 78-year-old with: 1. Asthma exacerbation. 2. Acute hypoxemic respiratory failure. 3. Chronic hypoxemic and chronic hypercapnic respiratory failure. 4. Chronic urticaria. 5. Immunoglobulin deficiency. DISCUSSION: A 78-year-old with problems outlined above. She reports she feels better, and her lactic acid has resolved with discontinuing metformin. However, she has had an increase in serum sugars. Her heart rate remains less than 90. PLAN: 1. Continue steroid dosing, but consider changing tomorrow if she continues to improve. 2. Decrease Lopressor to 12.5 mg a day. 3. Continue to wean oxygen as tolerated. 4. Continue H1 and H2 blockers. cc: MD Josh Haynes MD
[2018-07-23] MEDS: DUONEB (A & A) INH SCH ×4 (03:10→21:15)
[2018-07-23] MEDS: SOLU-MEDROL IV SCH (03:47)
[2018-07-23] MEDS: CARDIZEM PO SCH ×4 (03:47→21:06)
[2018-07-23] MEDS: TOBRADEX OPH SUSP BOTH EYES SCH ×4 (03:48→21:07)
[2018-07-23] MEDS: HUMALOG SUBQ SCH ×4 (06:29→21:12)
[2018-07-23] MEDS: SYNTHROID PO SCH (06:29)
[2018-07-23] MEDS: MYCOSTATIN SUSP PO SCH ×4 (09:20→21:06)
[2018-07-23] MEDS: JANUVIA PO SCH (09:20)
[2018-07-23] MEDS: LOPRESSOR PO SCH (09:20)
[2018-07-23] MEDS: PAXIL PO SCH (09:20)
[2018-07-23] MEDS: KLONOPIN PO PRN ×2 (09:21→21:07)
[2018-07-23] MEDS: ASPIRIN PO SCH (09:23)
[2018-07-23] MEDS: PEPCID PO SCH ×2 (09:23→21:06)
[2018-07-23] MEDS: HYDROCORTISONE 2.5% LOTION TOP SCH ×2 (09:24→21:07)
--- NOTE | 2018-07-23 16:19 | PROGRESS NOTE ---
DATE: 07/23/2018 SUBJECTIVE: The patient's repeat blood gases showed a pCO2 of 62, and her lactate level was down to 2.2. We are going to change her steroids to by mouth 10 mg twice a day. Continue the IV antibiotics. Still continue to hold off on the metformin. She is slowly improving. She had sepsis as well as mild respiratory acidosis with acute respiratory failure. Vital signs, however, are stable except that she is running low-grade fever 99.1, has acute exacerbation of COPD with sepsis. She is followed by DR. Vásquez. -1 cc: Josh Guzman MD
[2018-07-23] MEDS: LEVAQUIN 750 MG/D5W 750 MG/150 ML IVPB IV SCH (17:23)
[2018-07-23] MEDS: PRAVACHOL PO SCH (21:06)
[2018-07-23] MEDS: ZYRTEC PO SCH (21:07)
[2018-07-23] MEDS: PREDNISONE PO SCH (21:07)
[2018-07-23] MEDS: VANCOMYCIN 1,500 MG in NS 250 ML IV SCH (22:34)
[2018-07-24] MEDS: CARDIZEM PO SCH ×4 (02:01→21:36)
[2018-07-24] MEDS: TOBRADEX OPH SUSP BOTH EYES SCH ×4 (02:25→21:37)
[2018-07-24] MEDS: SYNTHROID PO SCH (06:30)
[2018-07-24] MEDS: HUMALOG SUBQ SCH ×4 (06:30→21:37)
[2018-07-24] MEDS: DUONEB (A & A) INH SCH ×4 (06:33→21:10)
[2018-07-24] MEDS: PAXIL PO SCH (10:18)
[2018-07-24] MEDS: PREDNISONE PO SCH ×2 (10:18→21:36)
[2018-07-24] MEDS: KLONOPIN PO PRN ×2 (10:18→23:19)
[2018-07-24] MEDS: PEPCID PO SCH ×2 (10:19→21:37)
[2018-07-24] MEDS: MYCOSTATIN SUSP PO SCH ×4 (10:19→21:36)
[2018-07-24] MEDS: LOPRESSOR PO SCH (10:19)
[2018-07-24] MEDS: JANUVIA PO SCH (10:19)
[2018-07-24] MEDS: ASPIRIN PO SCH (10:21)
[2018-07-24] MEDS: HYDROCORTISONE 2.5% LOTION TOP SCH ×2 (10:24→21:38)
--- NOTE | 2018-07-24 12:57 | PROGRESS NOTE ---
DATE: 07/24/2018 SUBJECTIVE: A 78-year-old white female patient, admitted with significant cough expectoration, increasing shortness of breath, decreased exercise tolerance. Initially, patient was hypotensive. The patient does have history of COPD. Clinically patient is doing some better. The patient does have cough, wheezing, some chest soreness when she coughs. Oral intake is fair. No nausea or vomiting. Gets short of breath with undue exertion. Admission history, physical and Pulmonary consult noted. OBJECTIVE: Vital signs: Blood pressure 111/72, pulse 107, respirations 22, temperature 98.8 degrees. Skin: No rash or petechiae. HEENT: Head atraumatic, normocephalic. [place] conjunctivae. Anicteric sclerae. Extraocular muscle movement normal. Fundus cannot be penetrated. Good oral hygiene. No tonsillopharyngeal congestion or exudate. Ears and nose benign. Neck: Supple. No JVD. Lungs: Bibasilar crepitations, occasional wheezing. CVS: S1 and S2 heard. Abdomen: Soft, globular. Bowel sounds present. Extremities: No cyanosis, clubbing. No acute DVT. SUPERVISOR PAINT: Alert, awake. Able to move all 4 limbs. PROBLEM LIST: 1. Chronic obstructive pulmonary disease exacerbation. 2. Hypoxemic respiratory failure. 3. Urticaria. 4. Immunoglobulin deficiency. 5. Hypertension. Current medication noted. We will continue current treatment. Close observation. The patient does have history of hypothyroidism on Synthroid. I am going to repeat blood work tomorrow. After reviewing the results, will make necessary recommendations. cc: MD Josh Ward MD
[2018-07-24] MEDS: LEVAQUIN 750 MG/D5W 750 MG/150 ML IVPB IV SCH (17:39)
[2018-07-24] MEDS: VANCOMYCIN 1,500 MG in NS 250 ML IV SCH (21:35)
[2018-07-24] MEDS: PRAVACHOL PO SCH (21:36)
[2018-07-24] MEDS: ZYRTEC PO SCH (21:36)
[2018-07-25] MEDS: CARDIZEM PO SCH ×4 (03:05→20:44)
[2018-07-25] MEDS: TOBRADEX OPH SUSP BOTH EYES SCH ×4 (03:05→20:44)
[2018-07-25] MEDS: DUONEB (A & A) INH SCH ×4 (03:15→21:15)
[2018-07-25 04:55] LABS: ALLEN TEST YES; BE 11.7 mmoll (-3.0-3.0); BLOOD TYPE ARTERIAL; HCO3-(ACT) 34.1 mmoll (20.0-26.0); METHB 0.6 % (0.0-1.5); O2(CT) 13.6 mL/dL (15.0-23.0); O2HB 96.8 % (95.0-99.0); PO2(98.6) 146 mmHg (60-100); SAMPLE BLOOD; SAO2 97.4 % (95.0-100.0); THB 9.8 g/dL (11.5-17.4)
[2018-07-25 05:05] LABS: MODALITY CANNULA; PCO2(98.6) 62 mmHg (35-45)
[2018-07-25] MEDS: SYNTHROID PO SCH (06:07)
[2018-07-25] MEDS: HUMALOG SUBQ SCH ×4 (06:07→20:43)
[2018-07-25 07:16] LABS: EOS# 0.04 X1000 (0.0-0.7); EOS% 0.4 % (0.0-10.0); HEMATOCRIT 33.9 % (37.0-47.0); HEMOGLOBIN 10.1 g/dL (12.0-16.0); IMM GRAN% 0.9 % (0.0-0.5); LYMPH# 0.68 X1000 (1.2-3.4); LYMPH% 6.4 % (20.5-51.1); MCH 25.1 PG (27-31); MCHC 29.8 g/dL (33-37); MCV 84.1 FL (81-99); MONO# 0.45 X1000 (0.11-0.59); MONO% 4.2 % (1.7-9.3); NEUT# 9.39 X1000 (1.4-6.5); NEUT% 88.1 % (42.2-75.2); PLT 157 X1000 (130-400); RBC 4.03 XMIL (4.2-5.4); RDW 15.7 % (11.5-14.5); WBC 10.66 X1000 (4.8-10.8)
[2018-07-25 07:24] LABS: AGAP 6; ALBUMIN 2.6 g/dL (3.5-5.0); ALKALINE PHOSPHATASE 83 U/L (32-104); BUN 20 mg/dL (8-22); CALCIUM 8.2 mg/dL (8.8-10.2); CHLORIDE 96 mmol/L (98-107); COSMO 283; CREATININE 0.8 mg/dL (0.5-0.9); ESTIMATED GFR > 60; GLUCOSE 211 mg/dL (70-104); GOT 20 U/L (10-30); GPT 19 U/L (10-36); MAGNESIUM 1.8 mg/dL (1.5-2.7); POTASSIUM 4.7 mmol/L (3.5-5.1); SODIUM 137 mmol/L (136-145); TCO2 35 mmol/L (25-35); TOTAL BILIRUBIN 0.19 mg/dL (0.20-1.00); TOTAL PROTEIN 5.2 g/dL (6.3-8.3)
[2018-07-25 08:08] LABS: LYMPHS 4 % (21-51); MONO 4 % (1-9)
[2018-07-25 08:11] LABS: BANDS 2 % (0-1); SEGS 88 % (42-75)
[2018-07-25 08:12] LABS: HYPOCHROM 1+
--- NOTE | 2018-07-25 08:21 | Diag Imaging Result Doc PS360 ---
EXAM: CHEST-1 VIEW INDICATION: SOB TECHNIQUE: One view COMPARISON: 07/20/2018 FINDINGS: COPD changes and evidence of prior granulomatous disease is again noted. The lungs are grossly clear. There is no discrete pleural fluid collection or pneumothorax. The cardiomediastinal silhouette and central vasculature are grossly unremarkable. IMPRESSION: Stable emphysematous changes. No definite acute pathology by plain radiograph. Electronically signed by Zaid Mcgee 07/25/2018 8:18 AM
--- NOTE | 2018-07-25 08:39 | PROGRESS NOTE ---
DATE: 07/25/2018 SUBJECTIVE: Ms. Rojas is doing better. Cough and chest congestion are improving. Shortness of breath is less. No high-grade fever or chills. Denied any nausea or vomiting. No diarrhea. Oral intake is improving. PHYSICAL EXAMINATION: Vital Signs: Noted, which are stable. Neck: Supple. No JVD. Lungs: Bilateral occasional wheezing. CVS: S1 and S2 heard. Abdomen: Soft, nontender. Bowel sounds present. CONFERENCE PLANNER: Alert, awake. Able to move all 4 limbs. Extremities: No acute DVT. LABORATORY DATA: Done today, hemoglobin 10.1, hematocrit 33.9, WBC count 10.66, platelet count 157,000. The patient's blood gas done today noted, pH 7.4, pCO2 62, PO2 was 146. Electrolytes were fairly benign. Accu-Chek results reviewed. ASSESSMENT: Overall, the patient is doing better. Her problems include: 1. Chronic obstructive pulmonary disease exacerbation. 2. Hypoxemic respiratory failure. 3. Immunoglobulin deficiency. 4. Urticaria. 5. Hypertension. PLAN: We will try to ambulate the patient out of bed to chair. Continue rest of the treatment. If clinical condition permits, we will plan discharging patient home soon. cc: MD Josh Ward MD
[2018-07-25] MEDS: JANUVIA PO SCH (09:32)
[2018-07-25] MEDS: PEPCID PO SCH ×2 (09:32→20:44)
[2018-07-25] MEDS: PAXIL PO SCH (09:32)
[2018-07-25] MEDS: PREDNISONE PO SCH ×2 (09:32→20:44)
[2018-07-25] MEDS: LOPRESSOR PO SCH (09:32)
[2018-07-25] MEDS: ASPIRIN PO SCH (09:33)
[2018-07-25] MEDS: HYDROCORTISONE 2.5% LOTION TOP SCH ×2 (09:33→20:44)
[2018-07-25] MEDS: MYCOSTATIN SUSP PO SCH ×5 (09:34→20:44)
[2018-07-25] MEDS: LEVAQUIN 750 MG/D5W 750 MG/150 ML IVPB IV SCH (17:23)
[2018-07-25] MEDS: PRAVACHOL PO SCH (20:44)
[2018-07-25] MEDS: ZYRTEC PO SCH (20:44)
[2018-07-25] MEDS: KLONOPIN PO PRN (20:50)
[2018-07-25] MEDS: VANCOMYCIN 1,500 MG in NS 250 ML IV SCH ×2 (20:54→22:20)
[2018-07-26] MEDS: CARDIZEM PO SCH ×4 (02:41→20:25)
[2018-07-26] MEDS: TOBRADEX OPH SUSP BOTH EYES SCH ×4 (02:41→20:27)
[2018-07-26] MEDS: DUONEB (A & A) INH SCH ×4 (03:13→23:05)
[2018-07-26] MEDS: SYNTHROID PO SCH (06:09)
[2018-07-26] MEDS: HUMALOG SUBQ SCH ×5 (06:09→20:26)
--- NOTE | 2018-07-26 09:14 | PROGRESS NOTE ---
DATE: 07/26/2018 SUBJECTIVE: Ms. Rojas is doing fairly well. Her white count is 10.66, hemoglobin is 10.1, hematocrit 33.9. I do not have the blood gas report from yesterday. We will try to get the blood gases today. Her electrolytes looked well. Her anion gap was 6. CO2 level was 35. Glucose was 201. Magnesium was normal. Chest x-ray was repeated and it was unremarkable except for the presence of emphysema. I am going to repeat the arterial blood gases today to look for her progress, how she does today and if she is stable, we will discharge her in the morning. -4 cc: Josh Guzman MD
[2018-07-26] MEDS: ASPIRIN PO SCH (09:20)
[2018-07-26] MEDS: LOPRESSOR PO SCH (09:21)
[2018-07-26] MEDS: JANUVIA PO SCH (09:21)
[2018-07-26] MEDS: MYCOSTATIN SUSP PO SCH ×4 (09:21→20:26)
[2018-07-26] MEDS: HYDROCORTISONE 2.5% LOTION TOP SCH ×2 (09:21→20:26)
[2018-07-26] MEDS: PREDNISONE PO SCH ×2 (09:22→20:25)
[2018-07-26] MEDS: PAXIL PO SCH (09:22)
[2018-07-26] MEDS: PEPCID PO SCH ×2 (09:22→20:24)
[2018-07-26 09:26] LABS: ALLEN TEST YES; BE 17.4 mmoll (-3.0-3.0); BLOOD TYPE ARTERIAL; HCO3-(ACT) 38.5 mmoll (20.0-26.0); METHB 0.5 % (0.0-1.5); O2(CT) 14.4 mL/dL (15.0-23.0); O2HB 96.9 % (95.0-99.0); PO2(98.6) 126 mmHg (60-100); SAMPLE BLOOD; SAO2 97.5 % (95.0-100.0); THB 10.4 g/dL (11.5-17.4); pH(98.6) 7.43 (7.35-7.45)
[2018-07-26 09:28] LABS: PCO2(98.6) 67 mmHg (35-45)
[2018-07-26 09:29] LABS: MODALITY CANNULA
[2018-07-26] MEDS: LEVAQUIN PO SCH (15:32)
[2018-07-26] MEDS: ZYRTEC PO SCH (20:25)
[2018-07-26] MEDS: PRAVACHOL PO SCH (20:25)
[2018-07-26] MEDS: VANCOMYCIN 1,500 MG in NS 250 ML IV SCH (21:00)
--- NOTE | 2018-07-26 21:21 | PULMONOLOGY PROGRESS NOTE ---
DATE: 07/26/2018 SUBJECTIVE: The patient is awake, alert, and conversant. She has had very limited ambulation. She reports her breathing has improved and her cough has diminished. OBJECTIVE: Vital Signs: Blood pressure 122/67, heart rate 88, respiratory rate 14, oxygen saturation 100% on 2 L per nasal cannula. HEENT: Pupils are equal and reactive. Oropharynx is clear. Neck: Supple. Chest: Prolonged expiratory phase with very distant breath sounds. Cardiac: S1, S2. Abdomen: Soft. Extremities: Without edema. LABORATORIES: Arterial blood gas reveals a pH of 7.43, pCO2 of 67, pO2 of 126. IMPRESSION: A 78-year-old with: 1. Asthma exacerbation. 2. Chronic hypoxemic and chronic hypercapnic respiratory failure. 3. Resolving acute hypoxemic respiratory failure. 4. Mild immunoglobulin deficiency. 5. Chronic urticaria. DISCUSSION: A 78-year-old with problems outlined above. The patient had lactic acidosis while on metformin, but this has resolved. She is tolerating prednisone orally. RECOMMENDATIONS: 1. Continue current treatment regimen. 2. The patient has chronic CO2 retention. I believe she is likely near her baseline. 3. Agree with plans for discharge soon if she continues to improve. cc: MD Josh Haynes MD
[2018-07-26] MEDS: KLONOPIN PO PRN (21:32)
[2018-07-27] MEDS: TOBRADEX OPH SUSP BOTH EYES SCH ×3 (01:36→14:35)
[2018-07-27] MEDS: CARDIZEM PO SCH ×3 (01:36→14:35)
[2018-07-27] MEDS: DUONEB (A & A) INH SCH ×3 (03:10→14:52)
[2018-07-27] MEDS: SYNTHROID PO SCH (06:57)
[2018-07-27] MEDS: HUMALOG SUBQ SCH ×3 (06:57→16:59)
--- NOTE | 2018-07-27 09:14 | PROGRESS NOTE ---
DATE: 07/27/2018 SUBJECTIVE: Ms. Rojas is feeling better. Vital signs are stable. Yesterday, the blood gases revealed a pCO2 of 67, however, she has COPD. She has chronic retention of CO2. Her blood gases, however, showed lactate of only 1.00, which is the lowest we have seen. She is feeling better. She has received enough antibiotics for all these days, and I think she can be discharged today. We are going to discharge her today. -5 cc: Josh Guzman MD
[2018-07-27] MEDS: PREDNISONE PO SCH (09:18)
[2018-07-27] MEDS: JANUVIA PO SCH (09:18)
[2018-07-27] MEDS: PAXIL PO SCH (09:18)
[2018-07-27] MEDS: PEPCID PO SCH (09:19)
[2018-07-27] MEDS: LOPRESSOR PO SCH (09:19)
[2018-07-27] MEDS: MYCOSTATIN SUSP PO SCH ×3 (09:19→17:02)
[2018-07-27] MEDS: ASPIRIN PO SCH (09:19)
[2018-07-27] MEDS: HYDROCORTISONE 2.5% LOTION TOP SCH (09:20)
[2018-07-27] MEDS: LEVAQUIN PO SCH (14:38)
[2018-07-27 15:20] VITALS: BP 128/73
[2018-07-27] MEDS: KLONOPIN PO PRN (15:25)
--- NOTE | 2018-07-28 05:41 | DISCHARGE SUMMARY ---
ADMISSION DATE: 07/14/2018 DISCHARGE DATE: 07/27/2018 HISTORY: Ms. Rojas, who is a 78-year-old white female, was admitted with acute respiratory distress, acute on chronic respiratory failure and sepsis. DIAGNOSTIC DATA: Chest x-ray revealed severe changes of severe COPD. Initial white count was 15.92, hemoglobin was 10.6, hematocrit 37.4. Blood gases were done on numerous occasions. The highest pCO2 was around 68. The lactate level had gone up to 4.3. The last lactate level was 1.0. Blood gases are otherwise unremarkable, except for chronic CO2 retention. Blood sugar was 231. Urinalysis was negative. Vancomycin levels were done randomly. IgG level was low, it was 457, normal being 700 to 1600. COURSE IN THE HOSPITAL: She was initially treated with IV Levaquin. Later on, vancomycin was added. She was also given IV Solu-Medrol. Respiratory therapy was given. She was not getting better with sepsis. Dr. Vásquez was consulted. He suggested to discontinue metformin and later on did gamma globulin and gave her IgG IV. She has improved some, however, she has COPD with chronic CO2 retention, and she is going to get recurrent respiratory infections so she understands that. She is to stay away from people with infections. She will be taking prednisone 10 mg daily at home. She is to gradually cut it down to 20. She also had some oral thrush and it was treated accordingly. She had some conjunctivitis, which was treated accordingly. FINAL DIAGNOSES: 1. CO2, acute on chronic respiratory failure. 2. Sepsis. 3. Stomatitis. 4. Severe conjunctivitis. 5. Acute exacerbation of chronic obstructive pulmonary disease. cc: Josh Guzman MD
== END 2018-07-27 17:44 | disposition home health service (06) | DRG 871 ==
LOC: DIRADM 14:51 → 3N 15:53
PROVIDERS: ADMIT Internal Medicine; ATTEND Internal Medicine
CPT/HCPCS: 71010; 71020; 71045; 71046; 80048; 80053; 80202; 81001; 82784; 82805; 82948; 83605; 83735; 84100; 84443; 85025; 87040; 93005; 93010; 94640; 94660; 94667; 94760; 94761; A9270; J1561; J1815; J1956; J2920; J2930; J3370; J7050; J7506; J7512; XXXXX